=== PATIENT | female | born 1990 | race Caucasian/White ===

== ENCOUNTER 2017-06-09 21:42 | Emergency (ER) | payer SELFPAY ==
[2017-06-09 22:11] VITALS: BP 128/74; PULSE 96; TEMP 98.5; BMI 30.2
--- NOTE | 2017-06-09 22:44 | PDOC ---
History of Present Illness - General History Source: Patient Exam Limitations: No Limitations - History of Present Illness Initial Comments: 06/09/17 23:01 The patient is a 26-year-old female with no significant past medical history, and presents to the emergency department with right breast pain and redness for 3 days. She reports the pain started before the redness. She states she had 2 ultrasounds done and a BI-RAD 5 that was suggestive of breast malignancy. She also had a breast biopsy at [facility] which revealed an infection. She saw Dr. Amy Riley and took the prescribed amoxicillin and prednisone for several weeks. She denies any acute trauma. The patient denies chest pain, shortness of breath, headache and dizziness. The patient denies fever, chills, nausea, vomit, diarrhea and constipation. The patient denies dysuria, frequency, urgency and hematuria. 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 Past Surgical History: None reported Social History: No toxic habits reported <Minerva Arrington - Last Filed: 06/09/17 23:04> <Sandra Sandhu - Last Filed: 06/10/17 00:51> - General Chief Complaint: Pain Stated Complaint: BREAST PAIN Time Seen by Provider: 06/09/17 22:27 Past History <Minerva Arrington - Last Filed: 06/09/17 23:04> - Past Medical History Asthma: No Cancer: No Cardiac Disorders: No Diabetes: No HTN: No Seizures: No Thyroid Disease: No Other medical history: Bray's Palsy - Suicide/Smoking/Psychosocial Hx Smoking History: Never smoked Have you smoked in the past 12 months: No Information on smoking cessation initiated: No Hx Alcohol Use: No Drug/Substance Use Hx: No Substance Use Type: None Hx Substance Use Treatment: No <Sandra Sandhu - Last Filed: 06/10/17 00:51> - Past Medical History Allergies/Adverse Reactions: Allergies Allergy/AdvReac Type Severity Reaction Status Date / Time No Known Allergies Allergy Verified 06/09/17 22:09 Home Medications: Ambulatory Orders Cephalexin Monohydrate [Keflex -] 250 mg PO Q6H #28 capsule 06/10/17 Review of Systems - Review of Systems Able to Perform ROS?: Yes Comments:: 06/09/17 23:02 GENERAL/CONSTITUTIONAL: No fever or chills. No weakness. HEAD, EYES, EARS, NOSE AND THROAT: No change in vision. No ear pain or discharge. No sore throat. CARDIOVASCULAR: No chest pain or shortness of breath. RESPIRATORY: No cough, wheezing, or hemoptysis. GASTROINTESTINAL: No nausea, vomiting, diarrhea or constipation. GENITOURINARY: No dysuria, frequency, or change in urination. MUSCULOSKELETAL: (+) Right breast pain. No joint swelling or pain. No neck or back pain. SKIN: (+) Right breast redness. No rash NEUROLOGIC: No headache, vertigo, loss of consciousness, or change in strength/ sensation. ENDOCRINE: No increased thirst. No abnormal weight change. HEMATOLOGIC/LYMPHATIC: No anemia, easy bleeding, or history of blood clots. ALLERGIC/IMMUNOLOGIC: No hives or skin allergy. <Arrington,Minerva - Last Filed: 06/09/17 23:04> *Physical Exam - Vital Signs Last Vital Signs Temp Pulse Resp BP Pulse Ox 98.5 F 96 H 20 128/74 99 06/09/17 22:09 06/09/17 22:09 06/09/17 22:09 06/09/17 22:09 06/09/17 22:09 - Physical Exam Comments: 06/09/17 23:02 GENERAL: Awake, alert, and fully oriented, in no acute distress. Afebrile. HEAD: No signs of trauma EYES: PERRLA, EOMI, sclera anicteric, conjunctiva clear ENT: Auricles normal inspection, hearing grossly normal, nares patent, oropharynx clear without exudates. Moist mucosa NECK: Normal ROM, supple, no lymphadenopathy, JVD, or masses LUNGS: Breath sounds equal, clear to auscultation bilaterally. No wheezes, and no crackles HEART: Regular rate and rhythm, normal S1 and S2, no murmurs, rubs or gallops ABDOMEN: Soft, nontender, normoactive bowel sounds. No guarding, no rebound. No masses EXTREMITIES: Normal range of motion, no edema. No clubbing or cyanosis. No cords, erythema, or tenderness NEUROLOGICAL: Cranial nerves II through XII grossly intact. Normal speech, normal gait SKIN: (+) Right breast erythema at the lateral two quadrants. (+) Right breast RUQ small 1 cm cystic area with surrounding redness vs inflammation. Warm, Dry, normal turgor, no rashes noted. <Minerva Arrington - Last Filed: 06/09/17 23:04> - Vital Signs Last Vital Signs Temp Pulse Resp BP Pulse Ox 98.5 F 96 H 20 128/74 99 06/09/17 22:09 06/09/17 22:09 06/09/17 22:09 06/09/17 22:09 06/09/17 22:09 <Sandra Sandhu - Last Filed: 06/10/17 00:51> ED Treatment Course - LABORATORY CBC & Chemistry Diagram: 06/09/17 22:50 06/09/17 22:50 <Minerva Arrington - Last Filed: 06/09/17 23:04> - LABORATORY CBC & Chemistry Diagram: 06/09/17 22:50 06/09/17 22:50 <Sandra Sandhu - Last Filed: 06/10/17 00:51> Medical Decision Making - Medical Decision Making 06/10/17 00:27 Patient Name: ANTONIO RAMIRES THIS IS A PRELIMINARY REPORT FROM [facility] DATE OF SERVICE: 2017-06-09 23:42:32 IMAGES: 22 EXAM: US RIGHT BREAST HISTORY: Right lateral breast swelling COMPARISON: None. FINDINGS: Soft tissue scar at the 10 o'clock position of the right breast with adjacent heterogeneous tissue and subcutaneous edema. However, no discrete soft tissue mass or abnormal fluid collection is seen to suggest an abscess Dilated ducts at the 10 o'clock position of the right breast THIS DOCUMENT HAS BEEN ELECTRONICALLY SIGNED 06/10/17 00:50 Pt will be treated for cellulitis; she must follow with her breast specialist. <Sandra Sandhu - Last Filed: 06/10/17 00:51> *DC/Admit/Observation/Transfer - Attestations Scribe Attestion: 06/09/17 23:02 Documentation prepared by Minerva Arrington, acting as medical translator for Sandra Sandhu MD. <Minerva Arrington - Last Filed: 06/09/17 23:04> - Discharge Dispostion Admit: No <Sandra Sandhu - Last Filed: 06/10/17 00:51> Diagnosis at time of Disposition: Breast pain in female, Cellulitis - Discharge Dispostion Disposition: HOME Condition at time of disposition: Stable - Prescriptions Prescriptions: Cephalexin Monohydrate [Keflex -] 250 mg PO Q6H #28 capsule - Patient Instructions Printed Discharge Instructions: DI for Breast Pain (Mastalgia), DI for Mastitis Print Language: LATVIAN
[2017-06-09] MEDS ORDERED: CEFAZOLIN 1 GM in DEXTROSE 5%-WATER - 50 ML IVPB ONE (22:46)
[2017-06-09 23:01] LABS: BASOPHIL 0.5 % (0-2.0); EOSINOPHIL 2.3 % (0-4.5); MCH 30.3 pg (25.7-33.7); MCHC 33.6 g/dl (32.0-36.0); MEAN CELL VOLUME 90.3 fl (80-96); MEAN PLT VOLUME 11.1 fl (7.5-11.1); NEUTROPHILS 68.1 % (42.8-82.8); PLATELET COUNT 196 K/MM3 (134-434); RDW 13.1 % (11.6-15.6); WHITE BLOOD COUNT 10.5 K/mm3 (4.0-10.0)
[2017-06-09] MEDS ORDERED: CEFAZOLIN (PRE-DOCKED) 50 ML IVPB ONE (23:12)
[2017-06-09 23:23] LABS: ALBUMIN 3.6 g/dl (3.4-5.0); ALK PHOS 79 U/L (45-117); ANION GAP 5 (8-16); BILIRUBIN,TOTAL 0.2 mg/dL (0.2-1.0); CALCIUM 8.8 mg/dL (8.5-10.1); CO2 27 mmol/L (21-32); CREATININE 0.6 mg/dL (0.55-1.02); GLUCOSE,RANDOM 97 mg/dL (74-106); SGOT/AST 12 U/L (15-37); SGPT/ALT 21 U/L (12-78); TOT PROT 7.2 g/dl (6.4-8.2)
== END 2017-06-10 00:57 | disposition home or self-care (01) ==
LOC: JER 21:42
DX: N61.0 Mastitis without abscess (principal); N64.4 Mastodynia
CPT/HCPCS: 36415; 76642-TC-RT; 80053; 85025; 85651; 99282-25

== ENCOUNTER 2017-07-31 21:39 | Observation (INO) | payer OTHER ==
--- NOTE | 2017-07-31 22:13 | PDOC ---
Rapid Medical Evaluation Chief Complaint: Abscess Boil Time Seen by Provider: 07/31/17 22:11 Medical Evaluation: Allergies Allergy/AdvReac Type Severity Reaction Status Date / Time No Known Allergies Allergy Verified 06/09/17 22:09 07/31/17 22:11 I have performed a brief in-person evaluation of this patient. The patient presents with a chief complaint of: Right Breast Pain with Swelling Pertinent physical exam findings: Right Breast Lump, hard, swollen, severe tenderness, erythema to the 10-12 o'clock position. I have ordered the following: CT Chest with IV contrast r/o neoplasm or deep abscess that needs surgical treatment. Labs. The patient will proceed to the ED for further evaluation.
[2017-07-31 22:16] VITALS: BMI 29.2
[2017-07-31 22:43] LABS: BASOPHIL 0.7 % (0-2.0); EOSINOPHIL 1.9 % (0-4.5); MCH 30.4 pg (25.7-33.7); MEAN CELL VOLUME 89.5 fl (80-96); MEAN PLT VOLUME 10.3 fl (7.5-11.1); NEUTROPHILS 59.1 % (42.8-82.8); PLATELET COUNT 238 K/MM3 (134-434); RDW 13.1 % (11.6-15.6); WHITE BLOOD COUNT 10.8 K/mm3 (4.0-10.0)
--- NOTE | 2017-07-31 23:09 | PDOC ---
History of Present Illness - General History Source: Patient Exam Limitations: No Limitations - History of Present Illness Initial Comments: 07/31/17 23:41 The patient is a 27 year old female presenting with her family, with no significant past medical history, who presents to the emergency department with right breast pain, swelling and erythema. She states that she recently noticed the symptoms. She reports that her pain ranges from mild to moderate, without radiation. She states that palpating the area exacerbates the pain. She reports that she had a similar episode that occurred last year, which also involved her right breast. She had imaging and a biopsy that were negative for any significant findings. She was placed on antibiotics and then issue resolved. The patient denies chest pain, shortness of breath, headache and dizziness. Denies fever, chills, nausea, vomit, diarrhea and constipation. Denies dysuria, frequency, urgency and hematuria. Allergies: None Past surgical history: None reported Social history: No alcohol, tobacco or drug use reported <Hakeem Grimaldo - Last Filed: 07/31/17 23:38> <Isaiah Adkins - Last Filed: 08/01/17 01:01> - General Chief Complaint: Abscess Boil Stated Complaint: BREAST PAIN Time Seen by Provider: 07/31/17 22:11 Past History <Hakeem Grimaldo - Last Filed: 07/31/17 23:38> - Past Medical History Asthma: No Cancer: No Cardiac Disorders: No COPD: No Diabetes: No HTN: No Seizures: No Thyroid Disease: No (Pt denies) - Suicide/Smoking/Psychosocial Hx Smoking History: Never smoked Have you smoked in the past 12 months: No Information on smoking cessation initiated: No Hx Alcohol Use: No Drug/Substance Use Hx: No Substance Use Type: None Hx Substance Use Treatment: No <Isaiah Adkins - Last Filed: 08/01/17 01:01> - Past Medical History Allergies/Adverse Reactions: Allergies Allergy/AdvReac Type Severity Reaction Status Date / Time No Known Allergies Allergy Verified 07/31/17 22:12 Home Medications: Ambulatory Orders NK [No Known Home Medication] 08/01/17 Review of Systems - Review of Systems Able to Perform ROS?: Yes Comments:: 07/31/17 23:39 CONSTITUTIONAL: No fever, no chills, no fatigue EYES: No visual changes ENT: No ear pain, no sore throat CARDIOVASCULAR: No chest pain, no palpitations RESPIRATORY: No cough, no SOB GI: No abdominal pain, no nausea, no vomiting, no constipation, no diarrhea GENITOURINARY: No dysuria, no frequency, no hematuria MUSKULOSKELETAL: No backpain, no joint pain, no myalgias SKIN: (+) Right breast pain, swelling and erythema. NEURO: No headache <Hakeem Grimaldo - Last Filed: 07/31/17 23:38> *Physical Exam - Vital Signs Last Vital Signs Temp Pulse Resp BP Pulse Ox 97.8 F 72 20 130/62 100 07/31/17 22:14 07/31/17 22:14 07/31/17 22:14 07/31/17 22:14 07/31/17 22:14 - Physical Exam Comments: 07/31/17 23:39 CONSTITUTIONAL: Well-appearing; well-nourished; in no apparent distress HEAD: Normocephalic; atraumatic EYES: PERRL; EOM intact ENMT: External appears normal; normal oropharynx NECK: Supple; non-tender; no cervical lymphadenopathy CARD: Normal S1, S2; no murmurs, rubs, or gallops RESP: Normal chest excursion with respiration; breath sounds clear and equal bilaterally; no wheezes, rhonchi, or rales ABD: Soft, non-distended; non-tender; no palpable organomegaly, no palpable hernias EXT: Normal ROM in all four extremities; non-tender to palpation; distal pulses intact SKIN: (+) 4 by 2 cm area of induration in the right upper quadrant of right breast with overlying erythema and tenderness to palpation. NEURO: No focal neurological deficiencies. <Hakeem Grimaldo - Last Filed: 07/31/17 23:38> - Vital Signs Last Vital Signs Temp Pulse Resp BP Pulse Ox 97.8 F 72 20 130/62 100 07/31/17 22:14 07/31/17 22:14 07/31/17 22:14 07/31/17 22:14 07/31/17 22:14 <Isaiah Adkins - Last Filed: 08/01/17 01:01> ED Treatment Course - LABORATORY CBC & Chemistry Diagram: 07/31/17 22:30 07/31/17 22:30 - ADDITIONAL ORDERS Additional order review: Laboratory Results 07/31/17 07/31/17 23:10 22:30 PT with INR 13.70 H INR 1.21 H Urine Color Colorless Urine Appearance Clear Urine pH 6.0 Ur Specific [place] 1.006 Urine Protein Negative Urine Glucose (UA) Negative Urine Ketones Negative Urine Blood Negative Urine Nitrite Negative Urine Bilirubin Negative Urine Urobilinogen Negative Urine HCG, Qual Negative 07/31/17 22:30 RBC 4.11 MCV 89.5 MCHC 34.0 RDW 13.1 MPV 10.3 Neutrophils % 59.1 Lymphocytes % 29.7 D Monocytes % 8.6 Eosinophils % 1.9 Basophils % 0.7 - Medications Given in the ED: ED Medications Discontinued Medications Generic Name Dose Route Start Last Admin Trade Name Freq PRN Reason Stop Dose Admin Oxycodone/Acetaminophen 1 combo 07/31/17 23:18 07/31/17 23:23 Percocet 5/325 - PO 07/31/17 23:19 1 combo ONCE ONE Administration <Hakeem Grimaldo - Last Filed: 07/31/17 23:38> - LABORATORY CBC & Chemistry Diagram: 07/31/17 22:30 07/31/17 22:30 - ADDITIONAL ORDERS Additional order review: 07/31/17 22:30 RBC 4.11 MCV 89.5 MCHC 34.0 RDW 13.1 MPV 10.3 Neutrophils % 59.1 Lymphocytes % 29.7 D Monocytes % 8.6 Eosinophils % 1.9 Basophils % 0.7 <Isaiah Adkins - Last Filed: 08/01/17 01:01> Medical Decision Making - Medical Decision Making 08/01/17 01:00 Patient is a 27-year-old female who presents to the ER with an approximate 3.5 cm right breast abscess. Patient is received IV Unasyn and Percocet for pain. Will consult breast surgery for IND. Will place and observation. <Isaiah Adkins - Last Filed: 08/01/17 01:01> *DC/Admit/Observation/Transfer - Attestations Scribe Attestion: 07/31/17 23:39 Documentation prepared by Hakeem Grimaldo, acting as vice president medical affairs for Isaiah Adkins MD <Hakeem Grimaldo - Last Filed: 07/31/17 23:38> - Discharge Dispostion Admit: Yes - Attestations Physician Attestion: 08/01/17 00:59 The documentation was prepared by the scribe under my direct supervision. I have reviewed the documentation which correctly represents the findings, medical decision-making and critical action taken by me. <Isaiah Adkins - Last Filed: 08/01/17 01:01> Diagnosis at time of Disposition: Breast abscess - Discharge Dispostion Condition at time of disposition: Fair
[2017-07-31 23:27] LABS: URINE APPEARANCE CLEAR; URINE BILIRUBIN NEGATIVE (NEGATIVE); URINE BLOOD NEGATIVE (NEGATIVE); URINE COLOR COLORLESS; URINE GLUCOSE (UA) NEGATIVE (NEGATIVE); URINE KETONE NEGATIVE (NEGATIVE); URINE NITRITE NEGATIVE (NEGATIVE); URINE PROTEIN NEGATIVE (NEGATIVE); URINE UROBILINOGEN NEGATIVE mg/dL (0.2-1.0)
[2017-07-31] MEDS ORDERED: AMPICILLIN NA/SULBACTAM NA 3 GM in SODIUM CHLORIDE 100 ML IVPB ONE (23:29)
[2017-07-31 23:33] LABS: INR 1.21 (0.82-1.09); PROTHROMBIN TIME (PATIENT) 13.7 SEC (9.98-11.88)
[2017-07-31 23:38] LABS: ALBUMIN 3.8 g/dl (3.4-5.0); ANION GAP 9 (8-16); CALCIUM 9.1 mg/dL (8.5-10.1); CO2 27 mmol/L (21-32); GLUCOSE,RANDOM 90 mg/dL (74-106)
[2017-07-31 23:42] LABS: ALK PHOS 87 U/L (45-117); BILIRUBIN,TOTAL 0.2 mg/dL (0.2-1.0); CREATININE 0.5 mg/dL (0.55-1.02); SGOT/AST 18 U/L (15-37); SGPT/ALT 29 U/L (12-78); TOT PROT 7.4 g/dl (6.4-8.2)
--- NOTE | 2017-08-01 01:04 | HP ---
CHIEF COMPLAINT: PCP: HISTORY OF PRESENT ILLNESS: ER course was notable for: (1) (2) (3) Recent Travel: PAST MEDICAL HISTORY: PAST SURGICAL HISTORY: Social History: Smoking: Alcohol: Drugs: Family History: Allergies No Known Allergies Allergy (Verified 07/31/17 22:12) HOME MEDICATIONS: Home Medications Medication Instructions Recorded NK [No Known Home Medication] 08/01/17 REVIEW OF SYSTEMS CONSTITUTIONAL: Absent: fever, chills, diaphoresis, generalized weakness, malaise, loss of appetite, weight change HEENT: Absent: rhinorrhea, nasal congestion, throat pain, throat swelling, difficulty swallowing, mouth swelling, ear pain, eye pain, visual changes CARDIOVASCULAR: Absent: chest pain, syncope, palpitations, irregular heart rate, lightheadedness , peripheral edema RESPIRATORY: Absent: cough, shortness of breath, dyspnea with exertion, orthopnea, wheezing, stridor, hemoptysis GASTROINTESTINAL: Absent: abdominal pain, abdominal distension, nausea, vomiting, diarrhea, constipation, melena, hematochezia GENITOURINARY: Absent: dysuria, frequency, urgency, hesitancy, hematuria, flank pain, genital pain MUSCULOSKELETAL: Absent: myalgia, arthralgia, joint swelling, back pain, neck pain SKIN: Absent: rash, itching, pallor HEMATOLOGIC/IMMUNOLOGIC: Absent: easy bleeding, easy bruising, lymphadenopathy, frequent infections ENDOCRINE: Absent: unexplained weight gain, unexplained weight loss, heat intolerance, cold intolerance NEUROLOGIC: Absent: headache, focal weakness or paresthesias, dizziness, unsteady gait, seizure, mental status changes, bladder or bowel incontinence PSYCHIATRIC: Absent: anxiety, depression, suicidal or homicidal ideation, hallucinations. PHYSICAL EXAMINATION Vital Signs - 24 hr 07/31/17 22:14 Temperature 97.8 F Pulse Rate 72 Respiratory 20 Rate Blood Pressure 130/62 O2 Sat by Pulse 100 Oximetry (%) GENERAL: Awake, alert, and fully oriented, in no acute distress. HEAD: Normal with no signs of trauma. EYES: Pupils equal, round and reactive to light, extraocular movements intact, sclera anicteric, conjunctiva clear. No lid lag. EARS, NOSE, THROAT: Ears normal, nares patent, oropharynx clear without exudates. Moist mucous membranes. NECK: Normal range of motion, supple without lymphadenopathy, JVD, or masses. LUNGS: Breath sounds equal, clear to auscultation bilaterally. No wheezes, and no crackles. No accessory muscle use. HEART: Regular rate and rhythm, normal S1 and S2 without murmur, rub or gallop. ABDOMEN: Soft, nontender, not distended, normoactive bowel sounds, no guarding, no rebound, no masses. No hepatomegaly or splenomegaly. MUSCULOSKELETAL: Normal range of motion at all joints. No bony deformities or tenderness. No CVA tenderness. UPPER EXTREMITIES: 2+ pulses, warm, well-perfused. No cyanosis. No clubbing. No peripheral edema. LOWER EXTREMITIES: 2+ pulses, warm, well-perfused. No calf tenderness. No peripheral edema. NEUROLOGICAL: Cranial nerves II-XII intact. Normal speech. Normal gait. PSYCHIATRIC: Cooperative. Good eye contact. Appropriate mood and affect. SKIN: Warm, dry, normal turgor, no rashes or lesions noted, normal capillary refill. Laboratory Results - last 24 hr 07/31/17 07/31/17 07/31/17 22:30 22:30 22:30 WBC 10.8 H RBC 4.11 Hgb 12.5 Hct 36.7 MCV 89.5 MCH 30.4 MCHC 34.0 RDW 13.1 Plt Count 238 D MPV 10.3 Neutrophils % 59.1 Lymphocytes % 29.7 D Monocytes % 8.6 Eosinophils % 1.9 Basophils % 0.7 PT with INR 13.70 H INR 1.21 H Sodium 139 Potassium 3.7 Chloride 103 Carbon Dioxide 27 Anion Gap 9 BUN 14 Creatinine 0.5 L Creat Clearance w eGFR > 60 Random Glucose 90 Calcium 9.1 Total Bilirubin 0.2 AST 18 D ALT 29 D Alkaline Phosphatase 87 Total Protein 7.4 Albumin 3.8 Urine Color Urine Appearance Urine pH Ur Specific [place] Urine Protein Urine Glucose (UA) Urine Ketones Urine Blood Urine Nitrite Urine Bilirubin Urine Urobilinogen Urine HCG, Qual 07/31/17 23:10 WBC RBC Hgb Hct MCV MCH MCHC RDW Plt Count MPV Neutrophils % Lymphocytes % Monocytes % Eosinophils % Basophils % PT with INR INR Sodium Potassium Chloride Carbon Dioxide Anion Gap BUN Creatinine Creat Clearance w eGFR Random Glucose Calcium Total Bilirubin AST ALT Alkaline Phosphatase Total Protein Albumin Urine Color Colorless Urine Appearance Clear Urine pH 6.0 Ur Specific [place] 1.006 Urine Protein Negative Urine Glucose (UA) Negative Urine Ketones Negative Urine Blood Negative Urine Nitrite Negative Urine Bilirubin Negative Urine Urobilinogen Negative Urine HCG, Qual Negative ASSESSMENT/PLAN: Problem List - Problem (1) Breast abscess Code(s): N61.1 - ABSCESS OF THE BREAST AND NIPPLE (2) Breast pain in female Code(s): N64.4 - MASTODYNIA Visit type - Emergency Visit Emergency Visit: Yes ED Registration Date: 07/31/17 Care time: The patient presented to the Emergency Department on the above date and was hospitalized for further evaluation of their emergent condition. - New Patient This patient is new to me today: Yes Date on this admission: 08/01/17 - Critical Care Critical Care patient: No
--- NOTE | 2017-08-01 01:18 | PN ---
Teaching Attending Note Name of Resident: Casper López ATTENDING PHYSICIAN STATEMENT I saw and evaluated the patient. I reviewed the resident's note and discussed the case with the resident. I agree with the resident's findings and plan as documented. SUBJECTIVE: 27 year old female with prior history of Right breast abscess presents today c/ o R breast pain , erythema and swelling x 2 days duration. Reports chills. OBJECTIVE: Vital Signs Temperature 97.8 F 07/31/17 22:14 Pulse Rate 72 07/31/17 22:14 Respiratory Rate 20 07/31/17 22:14 Blood Pressure 130/62 07/31/17 22:14 O2 Sat by Pulse Oximetry (%) 100 07/31/17 22:14 HEART: RRR, normal S1 and S2 without murmur BREAST: R breast erythema and half-dollar sized mass noted at 9-10 o'clock position painful to palpation. No erythema extending to areola or tracking to lymphadenopathy ABDOMEN: Soft, nontender, nondistended, normoactive bowel sounds, no guarding. No hepatomegaly. MUSCULOSKELETAL: No CVA tenderness CBC, BMP 07/31/17 22:30 07/31/17 22:30 Home Medication List Medication Instructions Recorded Confirmed Type NK [No Known Home Medication] 08/01/17 08/01/17 History ASSESSMENT AND PLAN: Right breast abscess, recurrent - surgical consult for I&D - IV antibiotics -ID consult - pain management as orderd
[2017-08-01] MEDS ORDERED: ACETAMINOPHEN 325 MG TABLET (FP) PO PRN (01:32)
--- NOTE | 2017-08-01 01:33 | HP ---
CHIEF COMPLAINT: Fevers/chills, breast mass PCP: Dr. Sandhu HISTORY OF PRESENT ILLNESS: 27yo F with no significant history who presents to the ED with family for chills, and painful R breast erythema and mass. Pt states she had this previously and had a biopsy done which showed an infection. Per medical records she was given antibiotics for 1-2wk supply. Pt states her chills started about a week ago, however she noticed increased pain and than an area of erythema on her breast about 2 days ago. Currently pt still has some chills and has pain with movement of her R arm due to the breast mass. Pt denies any constitutional symptoms, CP/discomfort, palpitations, SOB, abdominal pain, dysuria/polyuria, spontaneous or other drainage from nipple, and dysphagia. ER course was notable for: (1) R Breast US - 3.6 x 3.0 x 2.9cm complex fluid collection demonstrating scattered peripheral vascularity, most likely representing an abscess at the tendon 10 to 11:00 position approximately 2cm from the nipple (2) Dr. Andrade consulted (3) Unasyn 3gm dose x1 administered (4) WBC 10.7, Afebrile (5) Blood culture x2 drawn Recent Travel: Denies PAST MEDICAL HISTORY: Prior breast abscess PAST SURGICAL HISTORY: Breast biopsy Social History: Smoking: None Alcohol: None Drugs: None Family History: No family history of breast cancer Allergies No Known Allergies Allergy (Verified 07/31/17 22:12) HOME MEDICATIONS: Home Medications Medication Instructions Recorded NK [No Known Home Medication] 08/01/17 REVIEW OF SYSTEMS CONSTITUTIONAL: Present: Chills Absent: diaphoresis, generalized weakness, malaise, loss of appetite, weight change HEENT: Absent: rhinorrhea, nasal congestion, throat pain, throat swelling, difficulty swallowing, mouth swelling, ear pain, eye pain, visual changes CARDIOVASCULAR: Absent: chest pain, syncope, palpitations, irregular heart rate, lightheadedness , peripheral edema RESPIRATORY: Absent: cough, shortness of breath, dyspnea with exertion, orthopnea, wheezing, stridor, hemoptysis GASTROINTESTINAL: Absent: abdominal pain, abdominal distension, nausea, vomiting, diarrhea, constipation, melena, hematochezia GENITOURINARY: Absent: dysuria, frequency, urgency, hesitancy, hematuria, flank pain, genital pain MUSCULOSKELETAL: Absent: myalgia, arthralgia, joint swelling, back pain, neck pain SKIN: Present: R breast erythema Absent: rash, itching, pallor HEMATOLOGIC/IMMUNOLOGIC: Absent: easy bleeding, easy bruising, lymphadenopathy, frequent infections ENDOCRINE: Absent: unexplained weight gain, unexplained weight loss, heat intolerance, cold intolerance NEUROLOGIC: Absent: headache, focal weakness or paresthesias, dizziness, unsteady gait, seizure, mental status changes, bladder or bowel incontinence PSYCHIATRIC: Absent: anxiety, depression, suicidal or homicidal ideation, hallucinations. PHYSICAL EXAMINATION Vital Signs - 24 hr 07/31/17 22:14 Temperature 97.8 F Pulse Rate 72 Respiratory 20 Rate Blood Pressure 130/62 O2 Sat by Pulse 100 Oximetry (%) GENERAL: Sitting in chair, Awake, Alert, in slight pain HEENT: Moist mucosa, EOMI, OLU, no scleral icterus or other injections noted. LUNGS: CTA bilaterally. No wheezes, rales, rhonchi. HEART: RRR, normal S1 and S2 without murmur BREAST: R breast erythema and half-dollar sized mass noted at 9-10 o'clock position painful to palpation. No erythema extending to areola or tracking to lymphadenopathy ABDOMEN: Soft, nontender, nondistended, normoactive bowel sounds, no guarding. No hepatomegaly. MUSCULOSKELETAL: No CVA tenderness. R shoulder ROM limited due to pain EXTREMITIES: 2+ DP pulses, No edema noted NEUROLOGICAL: Non-focal. Alert and oriented x3. Strength 5/5 throughout with R arm PSYCHIATRIC: Cooperative. Good eye contact. Appropriate mood and affect. SKIN: Warm, See breast exam. No other rashes seen. Laboratory Results - last 24 hr 07/31/17 07/31/17 07/31/17 22:30 22:30 22:30 WBC 10.8 H RBC .11 Hgb 12.5 Hct 36.7 MCV 89.5 MCH 30.4 MCHC 34.0 RDW 13.1 Plt Count 238 D MPV 10.3 Neutrophils % 59.1 Lymphocytes % 29.7 D Monocytes % 8.6 Eosinophils % 1.9 Basophils % 0.7 PT with INR 13.70 H INR 1.21 H Sodium 139 Potassium 3.7 Chloride 103 Carbon Dioxide 27 Anion Gap 9 BUN 14 Creatinine 0.5 L Creat Clearance w eGFR > 60 Random Glucose 90 Calcium 9.1 Total Bilirubin 0.2 AST 18 D ALT 29 D Alkaline Phosphatase 87 Total Protein 7.4 Albumin 3.8 Urine Color Urine Appearance Urine pH Ur Specific [place] Urine Protein Urine Glucose (UA) Urine Ketones Urine Blood Urine Nitrite Urine Bilirubin Urine Urobilinogen Urine HCG, Qual 07/31/17 23:10 WBC RBC Hgb Hct MCV MCH MCHC RDW Plt Count MPV Neutrophils % Lymphocytes % Monocytes % Eosinophils % Basophils % PT with INR INR Sodium Potassium Chloride Carbon Dioxide Anion Gap BUN Creatinine Creat Clearance w eGFR Random Glucose Calcium Total Bilirubin AST ALT Alkaline Phosphatase Total Protein Albumin Urine Color Colorless Urine Appearance Clear Urine pH 6.0 Ur Specific [place] 1.006 Urine Protein Negative Urine Glucose (UA) Negative Urine Ketones Negative Urine Blood Negative Urine Nitrite Negative Urine Bilirubin Negative Urine Urobilinogen Negative Urine HCG, Qual Negative ASSESSMENT/PLAN: 27yo F with no history seen for breast mass and erythema found to have skin abscess of the R breast via US 1) R breast abscess --Surgery consulted in ED --Continue Unasyn 1.5gm q6h --Tylenol 650mg PO PRN for fevers --NPO for now --Type and screen FEN: Fluids: None needed currently Electrolyte abnormality: None Nutrition: NPO for now Dispo: Place into observation Case discussed with Dr. Luis A López, DO - Internal Medicine PGY-1 Visit type - Emergency Visit Emergency Visit: Yes Care time: The patient presented to the Emergency Department on the above date and was hospitalized for further evaluation of their emergent condition. - New Patient This patient is new to me today: Yes Date on this admission: 08/01/17 - Critical Care Critical Care patient: No
--- NOTE | 2017-08-01 01:44 | MSN ---
Admitting History and Physical - Admission Chief Complaint: Right breast abscess History of Present Illness: Kassandra Holbrook is a 27 year old female, vietnamese-speaking, with no significant pmhx who presents with right breast abscess. Patient states that she was having chills, headache and right breast pain for 1 week. She noted a mass on the right upper part of her right breast yesterday that is painful. Patient states that she had a similar mass last year for which she had a negative biopsy. She was discharged home on antibiotics. Patient denies dysuria, hematuria, chest pain, SOB, abdominal pain, sore throat or dysphagia. ER course was notable for: 1. WBC count was 10.8 2. US of the right breast showed a 3.6 X 3.0 X 2.9 cm fluid collection, likely representing abscess at 10 to 11 position approximately 2 cm from the nipple 3. Dr. Andrade was consulted History Source: Patient Limitations to Obtaining History: Language Barrier - Past Surgical History Past Surgical History: Yes: None - Smoking History Smoking history: Never smoked Have you smoked in the past 12 months: No - Alcohol/Substance Use Hx Alcohol Use: No Home Medications - Allergies Allergies/Adverse Reactions: Allergies Allergy/AdvReac Type Severity Reaction Status Date / Time No Known Allergies Allergy Verified 07/31/17 22:12 - Home Medications Home Medications: Ambulatory Orders NK [No Known Home Medication] 08/01/17 Review of Systems - Review of Systems Constitutional: reports: Chills Eyes: reports: No Symptoms HENT: reports: No Symptoms Neck: reports: No Symptoms Cardiovascular: reports: No Symptoms Respiratory: reports: No Symptoms Gastrointestinal: reports: No Symptoms Genitourinary: reports: No Symptoms Breasts: reports: Lumps, Pain Musculoskeletal: reports: No Symptoms Neurological: reports: No Symptoms Endocrine: reports: No Symptoms Physical Examination Vital Signs: Vital Signs Temperature 97.8 F 07/31/17 22:14 Pulse Rate 72 07/31/17 22:14 Respiratory Rate 20 07/31/17 22:14 Blood Pressure 130/62 07/31/17 22:14 O2 Sat by Pulse Oximetry (%) 100 07/31/17 22:14 Constitutional: Yes: Well Nourished, No Distress, Calm Eyes: Yes: Conjunctiva Clear, EOM Intact HENT: Yes: Atraumatic, Normocephalic Neck: Yes: Supple, Trachea Midline Cardiovascular: Yes: Regular Rate and Rhythm Respiratory: Yes: Regular, CTA Bilaterally Gastrointestinal: Yes: Normal Bowel Sounds, Soft Breast(s): Yes: Right, Mass (erythematous mass noted on the right breast that is approximately 3-4cm in diameter, indurated, warm to touch, tenderness to palpation) Musculoskeletal: Yes: WNL Extremities: Yes: WNL Neurological: Yes: Alert, Oriented ...Motor Strength: WNL Labs: CBC, BMP 07/31/17 22:30 07/31/17 22:30 Assessment/Plan Kassandra Holbrook is a 27 year old female with no significant pmhx who presented with right breast abscess. 1. Right breast pain secondary to abscess - US of the right breast showed a 3.6 X 3.0 X 2.9 cm fluid collection, likely representing abscess at 10 to 11 position approximately 2 cm from the nipple - Zosyn IVPB Q6H - Acetaminophen 650mg Q4H PRN - Blood culturre - Type and screen - PT/INR - Blood culture - Consult Dr. Andrade to see if surgery is necessary
[2017-08-01 06:49] LABS: INR 1.19 (0.82-1.09); PROTHROMBIN TIME (PATIENT) 13.4 SEC (9.98-11.88)
[2017-08-01] MEDS ORDERED: AMPICILLIN NA/SULBACTAM NA 1.5 GM in SODIUM CHLORIDE 100 ML IVPB SCH (07:00)
[2017-08-01 08:12] VITALS: BP 116/61; PULSE 79; TEMP 97.8
[2017-08-01] MEDS ORDERED: morphine CARPU-JECT 2 MG/1 ML DISP.SYRIN IVPUSH STA (11:08)
[2017-08-01] MEDS ORDERED: morphine CARPU-JECT 2 MG/1 ML DISP.SYRIN IVPUSH PRN (11:09)
--- NOTE | 2017-08-01 11:10 | PN ---
Physical Exam: SUBJECTIVE: Patient seen and examined OBJECTIVE: Vital Signs Period Temp Pulse Resp BP Sys/Benson Pulse Ox Last 24 Hr 97.6 F-97.8 F 62-79 16-20 103-130/54-72 100-100 GENERAL: The patient is awake, alert, and fully oriented, in no acute distress. HEAD: Normal with no signs of trauma. EYES: PERRL, extraocular movements intact, sclera anicteric, conjunctiva clear. No ptosis. ENT: Ears normal, nares patent, oropharynx clear without exudates, moist mucous membranes. NECK: Trachea midline, full range of motion, supple. LUNGS: Breath sounds equal, clear to auscultation bilaterally, no wheezes, no crackles, no accessory muscle use. right breast, area of erythema, indurated 10:00 position, exquisitely tender HEART: Regular rate and rhythm, S1, S2 without murmur, rub or gallop. ABDOMEN: Soft, nontender, nondistended, normoactive bowel sounds, no guarding, no rebound, no hepatosplenomegaly, no masses. EXTREMITIES: 2+ pulses, warm, well-perfused, no edema. NEUROLOGICAL: Cranial nerves II through XII grossly intact. Normal speech, gait not observed. PSYCH: Normal mood, normal affect. SKIN: Warm, dry, normal turgor, no rashes or lesions noted Laboratory Results - last 24 hr 07/31/17 07/31/17 07/31/17 22:30 22:30 22:30 WBC 10.8 H RBC 4.11 Hgb 12.5 Hct 36.7 MCV 89.5 MCH 30.4 MCHC 34.0 RDW 13.1 Plt Count 238 D MPV 10.3 Neutrophils % 59.1 Lymphocytes % 29.7 D Monocytes % 8.6 Eosinophils % 1.9 Basophils % 0.7 PT with INR 13.70 H INR 1.21 H Sodium 139 Potassium 3.7 Chloride 103 Carbon Dioxide 27 Anion Gap 9 BUN 14 Creatinine 0.5 L Creat Clearance w eGFR > 60 Random Glucose 90 Calcium 9.1 Total Bilirubin 0.2 AST 18 D ALT 29 D Alkaline Phosphatase 87 Total Protein 7.4 Albumin 3.8 Urine Color Urine Appearance Urine pH Ur Specific [place] Urine Protein Urine Glucose (UA) Urine Ketones Urine Blood Urine Nitrite Urine Bilirubin Urine Urobilinogen Urine HCG, Qual Blood Type Antibody Screen 07/31/17 08/01/17 08/01/17 23:10 06:04 06:04 WBC RBC Hgb Hct MCV MCH MCHC RDW Plt Count MPV Neutrophils % Lymphocytes % Monocytes % Eosinophils % Basophils % PT with INR 13.40 H INR 1.19 H Sodium Potassium Chloride Carbon Dioxide Anion Gap BUN Creatinine Creat Clearance w eGFR Random Glucose Calcium Total Bilirubin AST ALT Alkaline Phosphatase Total Protein Albumin Urine Color Colorless Urine Appearance Clear Urine pH 6.0 Ur Specific [place] 1.006 Urine Protein Negative Urine Glucose (UA) Negative Urine Ketones Negative Urine Blood Negative Urine Nitrite Negative Urine Bilirubin Negative Urine Urobilinogen Negative Urine HCG, Qual Negative Blood Type A POSITIVE Antibody Screen Negative Active Medications Generic Name Dose Route Start Last Admin Trade Name Freq PRN Reason Stop Dose Admin Acetaminophen 650 mg 08/01/17 01:32 Tylenol - PO Q4H PRN FEVER OR PAIN Ampicillin Sodium/Sulbactam 100 mls @ 200 mls/hr 08/01/17 07:00 08/01/17 06: 43 Sodium 1.5 gm/ Sodium Chloride IVPB 200 mls/hr Q6H-IV DICK Administration Morphine Sulfate 2 mg 08/01/17 11:08 Morphine Injection - IVPUSH 08/01/17 11:09 ONCE STA Morphine Sulfate 2 mg 08/01/17 11:09 Morphine Injection - IVPUSH Q4H PRN PAIN ASSESSMENT/PLAN: morphine for pain
[2017-08-01] MEDS ORDERED: morphine SULFATE 4 MG/ML VIAL ONE (11:18)
[2017-08-01 11:32] LABS: URINE LEUK ESTERASE Negative (NEGATIVE)
--- NOTE | 2017-08-01 13:28 | DS ---
Physical Exam: SUBJECTIVE: Patient seen and examined OBJECTIVE: Vital Signs Period Temp Pulse Resp BP Sys/Benson Pulse Ox Last 24 Hr 97.6 F-97.8 F 62-79 16-20 103-130/54-72 100-100 PHYSICAL EXAM GENERAL: The patient is awake, alert, and fully oriented, in no acute distress. HEAD: Normal with no signs of trauma. EYES: PERRL, extraocular movements intact, sclera anicteric, conjunctiva clear. ENT: Ears normal, nares patent, oropharynx clear without exudates, moist mucous membranes. NECK: Trachea midline, full range of motion, supple. LUNGS: Breath sounds equal, clear to auscultation bilaterally, no wheezes, no crackles, no accessory muscle use. HEART: Regular rate and rhythm, S1, S2 without murmur, rub or gallop. ABDOMEN: Soft, nontender, nondistended, normoactive bowel sounds, no guarding, no rebound, no hepatosplenomegaly, no masses. EXTREMITIES: 2+ pulses, warm, well-perfused, no edema. NEUROLOGICAL: Cranial nerves II through XII grossly intact. Normal speech, gait not observed. PSYCH: Normal mood, normal affect. SKIN: Warm, dry, normal turgor, no rashes or lesions noted. LABS Laboratory Results - last 24 hr 07/31/17 07/31/17 07/31/17 22:30 22:30 22:30 WBC 10.8 H RBC 4.11 Hgb 12.5 Hct 36.7 MCV 89.5 MCH 30.4 MCHC 34.0 RDW 13.1 Plt Count 238 D MPV 10.3 Neutrophils % 59.1 Lymphocytes % 29.7 D Monocytes % 8.6 Eosinophils % 1.9 Basophils % 0.7 PT with INR 13.70 H INR 1.21 H Sodium 139 Potassium 3.7 Chloride 103 Carbon Dioxide 27 Anion Gap 9 BUN 14 Creatinine 0.5 L Creat Clearance w eGFR > 60 Random Glucose 90 Calcium 9.1 Total Bilirubin 0.2 AST 18 D ALT 29 D Alkaline Phosphatase 87 Total Protein 7.4 Albumin 3.8 Urine Color Urine Appearance Urine pH Ur Specific [place] Urine Protein Urine Glucose (UA) Urine Ketones Urine Blood Urine Nitrite Urine Bilirubin Urine Urobilinogen Ur Leukocyte Esterase Urine HCG, Qual Blood Type Antibody Screen 07/31/17 08/01/17 08/01/17 23:10 06:04 06:04 WBC RBC Hgb Hct MCV MCH MCHC RDW Plt Count MPV Neutrophils % Lymphocytes % Monocytes % Eosinophils % Basophils % PT with INR 13.40 H INR 1.19 H Sodium Potassium Chloride Carbon Dioxide Anion Gap BUN Creatinine Creat Clearance w eGFR Random Glucose Calcium Total Bilirubin AST ALT Alkaline Phosphatase Total Protein Albumin Urine Color Colorless Urine Appearance Clear Urine pH 6.0 Ur Specific [place] 1.006 Urine Protein Negative Urine Glucose (UA) Negative Urine Ketones Negative Urine Blood Negative Urine Nitrite Negative Urine Bilirubin Negative Urine Urobilinogen Negative Ur Leukocyte Esterase Negative Urine HCG, Qual Negative Blood Type A POSITIVE Antibody Screen Negative HOSPITAL COURSE: Date of Admission:08/01/17 Date of Discharge: 08/01/17 Minutes to complete discharge: 35 Discharge Summary Reason For Visit: ABSCESS OF BREAST Current Active Problems Breast abscess (Acute) Condition: Stable - Instructions Diet, Activity, Other Instructions: You are encouraged to make an appointment with your breast surgeon, Dr. Chelo Bautista for follow up care. You may Motrin or Tylenol for inflammation and pain. Do not exceed 4,000mg of tylenol in a 24-hour period. Return to the emergency department for any new or worsening symptoms. Referrals: Chelo Bautista MD [Non Staff, Medical] - 1 Week Disposition: HOME - Home Medications Comprehensive Discharge Medication List: Ambulatory Orders NK [No Known Home Medication] 08/01/17 This patient is new to me today: Yes Date on this admission: 08/01/17 Emergency Visit: Yes ED Registration Date: 08/01/17 Care time: The patient presented to the Emergency Department on the above date and was hospitalized for further evaluation of their emergent condition. Critical Care patient: No - Discharge Referral Referred to [facility] Med P.C.: No
--- NOTE | 2017-08-01 14:06 | CONSULT ---
- Consultation REQUESTING PROVIDER: [place] ENGINEER AND GEOLOGIST CONSULT REQUEST: We have been asked to surgically evaluate this patient for ( specify). PCP:Lakshmi Rolon HISTORY OF PRESENT ILLNESS: # days of right breast pain w/an associated mass previously present and bxed. PMHx: none PSHx: USG right breast bx. by Dr. Howard at [facility] and benign 03/13/16; [facility] reviewed by myself and ENGINEER AND GEOLOGIST Gonzales. Home Medications Medication Instructions Recorded NK [No Known Home Medication] 08/01/17 Allergies Allergy/AdvReac Type Severity Reaction Status Date / Time No Known Allergies Allergy Verified 07/31/17 22:12 REVIEW OF SYSTEMS: Pain right breast; no family h/o breast cancer PHYSICAL EXAM: GENERAL: Awake, alert, and fully oriented, in no acute distress. HEAD: Normal with no signs of trauma. EYES: sclera anicteric, conjunctiva clear. NECK: Normal ROM, supple without lymphadenopathy, JVD, or masses. ABDOMEN: Soft, nontender, not distended, normoactive bowel sounds, no guarding, no rebound, no masses. No organomegaly. MUSCULOSKELETAL: Normal ROM at all joints. No bony deformities or tenderness. No CVA tenderness. UPPER EXTREMITIES: 2+ pulses, warm, well-perfused. No cyanosis. Cap refill <2 seconds. No peripheral edema. LOWER EXTREMITIES: 2+ pulses, warm, well-perfused. No calf tenderness. No peripheral edema. NEUROLOGICAL: Normal speech, gait not observed. PSYCH: Cooperative. Good eye contact. Appropriate mood and affect. SKIN: Warm, dry, normal turgor, no rashes or lesions noted. BREASTS: ill defined ~ 5.0 cm. right mass w/ overlying erythema at ~ 10 o'clock w/slight ttp and remaining global fibrocystic changes; area of previous ? I and ? at 5 o'clock; no peau d'orange; left breast w/ fibrocystic changes w/o dominant mass and b/l normal nipple areolar complexes. Vital Signs Temperature 97.8 F 08/01/17 08:11 Pulse Rate 79 08/01/17 08:11 Respiratory Rate 18 08/01/17 08:11 Blood Pressure 116/61 08/01/17 08:11 O2 Sat by Pulse Oximetry (%) 100 08/01/17 08:11 Lab Results WBC 10.8 K/mm3 (4.0-10.0) H 07/31/17 22:30 RBC 4.11 M/mm3 (3.60-5.2) 07/31/17 22:30 Hgb 12.5 GM/dL (10.7-15.3) 07/31/17 22:30 Hct 36.7 % (32.4-45.2) 07/31/17 22:30 MCV 89.5 fl (80-96) 07/31/17 22:30 MCHC 34.0 g/dl (32.0-36.0) 07/31/17 22:30 RDW 13.1 % (11.6-15.6) 07/31/17 22:30 Plt Count 238 K/MM3 (134-434) D 07/31/17 22:30 Sodium 139 mmol/L (136-145) 07/31/17 22:30 Potassium 3.7 mmol/L (3.5-5.1) 07/31/17 22:30 Chloride 103 mmol/L (98-107) 07/31/17 22:30 Carbon Dioxide 27 mmol/L (21-32) 07/31/17 22:30 Anion Gap 9 (8-16) 07/31/17 22:30 BUN 14 mg/dL (7-18) 07/31/17 22:30 Creatinine 0.5 mg/dL (0.55-1.02) L 07/31/17 22:30 Random Glucose 90 mg/dL (74-106) 07/31/17 22:30 Calcium 9.1 mg/dL (8.5-10.1) 07/31/17 22:30 Blood Type A POSITIVE 08/01/17 06:04 Antibody Screen Negative 08/01/17 06:04 INR 1.19 (0.82-1.09) H 08/01/17 06:04 IMP: right breast mass PLAN: Suggest wide excision of this area h/e patient should f/u w/ the breast surgeon she was previously seeing who did not recommend this previously; in the interim advise OTC NSAIDS for pain; a/a/u by the patient and her as explained in Albanian and d/w MCKENZIE Rolon. Saúl Andrade MD FACS Visit type - Case Type Case Type: ED Admission - Emergency Emergency Visit: Yes ED Registration Date: 08/01/17 Care time: The patient presented to the Emergency Department on the above date and was hospitalized for further evaluation of their emergent condition. - New patient This patient is new to me today: Yes Date on this admission: 08/01/17 - Critical Care Critical Care patient: No
--- NOTE | 2017-08-08 11:41 | EKG ---
Test Reason : Blood Pressure : / mmHG Vent. Rate : 071 BPM Atrial Rate : 071 BPM P-R Int : 150 ms QRS Dur : 104 ms QT Int : 388 ms P-R-T Axes : 022 102 044 degrees QTc Int : 421 ms NORMAL SINUS RHYTHM RIGHTWARD AXIS INCOMPLETE RIGHT BUNDLE BRANCH BLOCK BORDERLINE ECG NO PREVIOUS ECGS AVAILABLE Confirmed by JACQUIE GIBBS, AMANDA ([id number]) on 08/08/2017 11:41:18 AM Referred By: Confirmed By:AMANDA DHILLON MD
== END 2017-08-01 13:36 | disposition home or self-care (01) ==
LOC: JER 21:39 → JERBED 08-01 01:01 → UNDOADMOB 08-01 01:30
PROVIDERS: ADMIT Internal Medicine; ATTEND Nurse Practitioner Acute Care
PROC: 3E03329 Introduction of Other Anti-infective into Peripheral Vein, Percutaneous Approach (ICD-10-PCS; principal; 2017-08-01)
PROC: 3E033NZ Introduction of Analgesics, Hypnotics, Sedatives into Peripheral Vein, Percutaneous Approach (ICD-10-PCS; 2017-08-01)
DX: N61.1 Abscess of the breast and nipple (principal)
CPT/HCPCS: 36415; 76642-TC-RT; 80053; 81003; 84703; 85025; 85610; 86850; 86900; 86901; 87040; 93005; 93010; 96365; 96375; 99284-25; G0378

== ENCOUNTER 2017-08-17 00:52 | Inpatient (IN) | payer OTHER ==
[2017-08-17 01:23] VITALS: BMI 28.1
--- NOTE | 2017-08-17 01:59 | PDOC ---
History of Present Illness - General History Source: Patient Exam Limitations: No Limitations - History of Present Illness Initial Comments: 08/17/17 03:12 The patient is a 27 year old female presenting with her family, with no significant past medical history, who presents to the emergency department with right breast pain, abscess, and erythema. The patient reports an abscess 1-2 inches in diameter 1 inch away from the right nipple. She reports to have been to a breast specialist 9 months ago which said, it will go away with time. She reports her symptoms worsened two weeks ago so she came to [facility]. She reports to have had labs run and she spoke to a surgeon. She denies recent fevers, chills, headache or dizziness. She denies recent nausea, vomit, diarrhea or constipation. She denies recent dysuria, frequency, urgency or hematuria. She denies recent chest pain or shortness of breath. Allergies: NKA Past surgical history: None reported. Social history: Nonsmoker. Denies EtOH use and recreational drug use. Primary Care Physician: Dr. Kaur <Donavan Acosta - Last Filed: 08/17/17 04:19> <Sandra Sandhu - Last Filed: 08/17/17 20:21> - General Chief Complaint: Wound Stated Complaint: RIGHT SIDE PAIN. Time Seen by Provider: 08/17/17 01:05 Past History <Donavan Acosta - Last Filed: 08/17/17 04:19> - Past Medical History Asthma: No Cancer: No Cardiac Disorders: No COPD: No DVT: No Diabetes: No HTN: No Seizures: No Thyroid Disease: No (Pt denies) - Immunization History Immunization Up to Date: Yes - Suicide/Smoking/Psychosocial Hx Smoking History: Never smoked Have you smoked in the past 12 months: No Information on smoking cessation initiated: No Hx Alcohol Use: No Drug/Substance Use Hx: No Substance Use Type: None Hx Substance Use Treatment: No <Sandra Sandhu - Last Filed: 08/17/17 20:21> - Past Medical History Allergies/Adverse Reactions: Allergies Allergy/AdvReac Type Severity Reaction Status Date / Time No Known Allergies Allergy Verified 08/17/17 01:21 Home Medications: Ambulatory Orders NK [No Known Home Medication] 08/01/17 Review of Systems - Review of Systems Able to Perform ROS?: Yes Comments:: CONSTITUTIONAL: No fever, no chills, no fatigue EYES: No visual changes ENT: No ear pain, no sore throat CARDIOVASCULAR: No chest pain, no palpitations RESPIRATORY: No cough, no SOB GI: No abdominal pain, no nausea, no vomiting, no constipation, no diarrhea GENITOURINARY: No dysuria, no frequency, no hematuria MUSKULOSKELETAL: No backpain, no joint pain, no myalgias SKIN: (+) Right breast pain, abscess, and erythema. NEURO: No headache 08/17/17 03:19 All Other Systems: Reviewed and Negative <Donavan Acosta - Last Filed: 08/17/17 04:19> *Physical Exam - Vital Signs Last Vital Signs Temp Pulse Resp BP Pulse Ox 98.8 F 72 20 119/66 98 08/17/17 01:21 08/17/17 01:21 08/17/17 01:21 08/17/17 01:21 08/17/17 01:21 - Physical Exam Comments: 08/17/17 03:20 GENERAL: Awake, alert, and fully oriented, in no acute distress HEAD: No signs of trauma EYES: PERRLA, EOMI, sclera anicteric, conjunctiva clear ENT: Auricles normal inspection, hearing grossly normal, nares patent, oropharynx clear without exudates. Moist mucosa NECK: Normal ROM, supple, no lymphadenopathy, JVD, or masses LUNGS: Breath sounds equal, clear to auscultation bilaterally. No wheezes, and no crackles HEART: Regular rate and rhythm, normal S1 and S2, no murmurs, rubs or gallops BREAST: +Abscess right breast 10 oclock. 1 inch away from the nipple. 1-2 inches in diameter. ABDOMEN: Soft, nontender, normoactive bowel sounds. No guarding, no rebound. No masses EXTREMITIES: Normal range of motion, no edema. No clubbing or cyanosis. No cords, erythema, or tenderness NEUROLOGICAL: Cranial nerves II through XII grossly intact. Normal speech, normal gait SKIN: Warm, Dry, normal turgor, no rashes or lesions noted. <Donavan Acsota - Last Filed: 08/17/17 04:19> - Vital Signs Last Vital Signs Temp Pulse Resp BP Pulse Ox 98.8 F 72 20 119/66 98 08/17/17 01:21 08/17/17 01:21 08/17/17 01:21 08/17/17 01:21 08/17/17 01:21 <Sandra Sandhu - Last Filed: 08/17/17 20:21> ED Treatment Course - LABORATORY CBC & Chemistry Diagram: 08/17/17 03:15 08/17/17 03:15 <Donavan Acosta - Last Filed: 08/17/17 04:19> - LABORATORY CBC & Chemistry Diagram: 08/17/17 09:00 08/17/17 09:00 <Sandra Sandhu - Last Filed: 08/17/17 20:21> Medical Decision Making - Medical Decision Making 08/17/17 03:34 Pt comes with enlarged breast swelling abscess. Pt has been here before for the same. She was here 2 weeks ago and she was admitted for surgical eval. Kathie saw her and did nothing, as per pt and family. Pt returns because the breast mass is larger and painful. SHe has had biopsies in the past and she was given mixed messages of what it could be. 08/17/17 20:20 Pt will be admitted to the hospitalist service. She will be seen and evaluated by the surgeon who saw her last time. <Sandra Sandhu - Last Filed: 08/17/17 20:21> *DC/Admit/Observation/Transfer - Attestations Scribe Attestion: 08/17/17 03:12 Documentation prepared by Donavan Acosta, acting as medical typist for Sandra Sandhu MD. <Donavan Acosta - Last Filed: 08/17/17 04:19> - Discharge Dispostion Admit: Yes <Sandra Sandhu - Last Filed: 08/17/17 20:21> Diagnosis at time of Disposition: Breast abscess, Breast pain in female, Breast inflammation, Breast cancer - Discharge Dispostion Condition at time of disposition: Guarded
[2017-08-17 03:24] LABS: BASO % 0.6 % (0-2.0); EOS % 3.4 % (0-4.5); MCH 29.8 pg (25.7-33.7); MCHC 33.4 g/dl (32.0-36.0); MEAN CELL VOLUME 89.4 fl (80-96); MEAN PLT VOLUME 9.7 fl (7.5-11.1); NEUT % 55.7 % (42.8-82.8); PLATELET COUNT 255 K/MM3 (134-434); RDW 13.1 % (11.6-15.6); WHITE BLOOD COUNT 8.5 K/mm3 (4.0-10.0)
[2017-08-17 03:36] LABS: INR 1.16 (0.82-1.09); PROTHROMBIN TIME (PATIENT) 13.1 SEC (9.98-11.88)
[2017-08-17 03:46] LABS: ALBUMIN 3.3 g/dl (3.4-5.0); ALK PHOS 67 U/L (45-117); ANION GAP 8 (8-16); BILIRUBIN,TOTAL 0.1 mg/dL (0.2-1.0); CALCIUM 8.4 mg/dL (8.5-10.1); CO2 26 mmol/L (21-32); CREATININE 0.5 mg/dL (0.55-1.02); GLUCOSE,RANDOM 97 mg/dL (74-106); SGOT/AST 12 U/L (15-37); SGPT/ALT 22 U/L (12-78); TOT PROT 6.5 g/dl (6.4-8.2)
[2017-08-17] MEDS ORDERED: AMPICILLIN NA/SULBACTAM NA 3 GM in SODIUM CHLORIDE 100 ML IVPB ONE (05:02)
[2017-08-17] MEDS ORDERED: IBUPROFEN 600 MG TABLET (FP) PO ONE (05:13)
[2017-08-17] MEDS: IBUPROFEN 600 MG TABLET (FP) PO PRN ×2 (05:14→11:17)
--- NOTE | 2017-08-17 05:31 | HP ---
CHIEF COMPLAINT: breast pain PCP: [facility] HISTORY OF PRESENT ILLNESS: This is a 27 year old female with no significant past medical history who presents to the ED with worsening redness and pain to mass/abscess right breast. Pt was seen here 2 weeks ago and evaluated by surgery who recommended pt f/u with breast surgeon. Pt states that the surgeon does not take her emergency medicaid. She reports that this mass started about 1 year ago. As per previous surgical note in chart, USG biopsy was done on 03/13/16 and it was negative. 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" PAST SURGICAL HISTORY: pt denies Social History: Smoking: pt denies Alcohol: pt denies Drugs: pt denies Family History: mother, father and siblings all alive and well; no medical problems Allergies No Known Allergies Allergy (Verified 08/17/17 01:21) HOME MEDICATIONS: 3 Medication Instructions Recorded NK [No Known Home Medication] 08/01/17 REVIEW OF SYSTEMS CONSTITUTIONAL: Absent: fever, chills, diaphoresis, generalized weakness, malaise, loss of appetite, weight change HEENT: Absent: rhinorrhea, nasal congestion, throat pain, throat swelling, difficulty swallowing, mouth swelling, ear pain, eye pain, visual changes CARDIOVASCULAR: Absent: chest pain, syncope, palpitations, irregular heart rate, lightheadedness , peripheral edema RESPIRATORY: Absent: cough, shortness of breath, dyspnea with exertion, orthopnea, wheezing, stridor, hemoptysis GASTROINTESTINAL: Absent: abdominal pain, abdominal distension, nausea, vomiting, diarrhea, constipation, melena, hematochezia GENITOURINARY: Absent: dysuria, frequency, urgency, hesitancy, hematuria, flank pain, genital pain MUSCULOSKELETAL: Absent: myalgia, arthralgia, joint swelling, back pain, neck pain SKIN: Present: right breast redness and pain Absent: rash, itching, pallor HEMATOLOGIC/IMMUNOLOGIC: Absent: easy bleeding, easy bruising, lymphadenopathy, frequent infections ENDOCRINE: Absent: unexplained weight gain, unexplained weight loss, heat intolerance, cold intolerance NEUROLOGIC: Absent: headache, focal weakness or paresthesias, dizziness, unsteady gait, seizure, mental status changes, bladder or bowel incontinence PSYCHIATRIC: Absent: anxiety, depression, suicidal or homicidal ideation, hallucinations. PHYSICAL EXAMINATION Vital Signs - 24 hr 3 08/17/17 08/17/17 01:21 03:57 Temperature 98.8 F Pulse Rate 72 Respiratory 20 Rate Blood Pressure 119/66 O2 Sat by Pulse 98 99 Oximetry (%) GENERAL: Awake, alert, and fully oriented, in no acute distress. HEAD: Normal with no signs of trauma. EYES: Pupils equal, round and reactive to light, extraocular movements intact, sclera anicteric, conjunctiva clear. No lid lag. EARS, NOSE, THROAT: Ears normal, nares patent, oropharynx clear without exudates. Moist mucous membranes. NECK: Normal range of motion, supple without lymphadenopathy, JVD, or masses. LUNGS: Breath sounds equal, clear to auscultation bilaterally. No wheezes, and no crackles. No accessory muscle use. HEART: Regular rate and rhythm, normal S1 and S2 without murmur, rub or gallop. ABDOMEN: Soft, nontender, not distended, normoactive bowel sounds, no guarding, no rebound, no masses. No hepatomegaly or splenomegaly. MUSCULOSKELETAL: Normal range of motion at all joints. No bony deformities or tenderness. No CVA tenderness. UPPER EXTREMITIES: 2+ pulses, warm, well-perfused. No cyanosis. No clubbing. No peripheral edema. LOWER EXTREMITIES: 2+ pulses, warm, well-perfused. No calf tenderness. No peripheral edema. NEUROLOGICAL: Cranial nerves II-XII intact. Normal speech. Normal gait. PSYCHIATRIC: Cooperative. Good eye contact. Appropriate mood and affect. SKIN: Warm, dry, normal turgor, no rashes or lesions noted, normal capillary refill. Right breast noted with redness, warmth, swelling at 10 0'clock, 4.0 cm length x 5.5cm width Laboratory Results - last 24 hr 3 08/17/17 08/17/17 08/17/17 03:13 03:15 03:15 WBC 8.5 RBC 3.96 Hgb 11.8 Hct 35.4 MCV 89.4 MCH 29.8 MCHC 33.4 RDW 13.1 Plt Count 255 MPV 9.7 Neutrophils % 55.7 Lymphocytes % 31.4 Monocytes % 8.9 Eosinophils % 3.4 Basophils % 0.6 PT with INR 13.10 H INR 1.16 H Sodium Potassium Chloride Carbon Dioxide Anion Gap BUN Creatinine Creat Clearance w eGFR Random Glucose Calcium Total Bilirubin AST ALT Alkaline Phosphatase Total Protein Albumin Urine HCG, Qual Negative 3 08/17/17 03:15 WBC RBC Hgb Hct MCV MCH MCHC RDW Plt Count MPV Neutrophils % Lymphocytes % Monocytes % Eosinophils % Basophils % PT with INR INR Sodium 141 Potassium 4.0 Chloride 107 Carbon Dioxide 26 Anion Gap 8 BUN 22 H D Creatinine 0.5 L Creat Clearance w eGFR > 60 Random Glucose 97 Calcium 8.4 L Total Bilirubin 0.1 L D AST 12 L D ALT 22 D Alkaline Phosphatase 67 D Total Protein 6.5 Albumin 3.3 L Urine HCG, Qual ASSESSMENT/PLAN: 27yF with PMH R breast mass/abscess x >1year presented due to increased pain, redness, swelling. right breast mass/abscess - will start on unasyn - surgical consult - will need to f/u with breast surgeon as outpatient DVT PPX - deferred as expected LOS <48h FEN - tolerating po - BMP in am - regular diet Dispo: pt admitted for further observation/surgical evaluation. Visit type - Emergency Visit Emergency Visit: Yes ED Registration Date: 08/17/17 Care time: The patient presented to the Emergency Department on the above date and was hospitalized for further evaluation of their emergent condition. - New Patient This patient is new to me today: Yes Date on this admission: 08/17/17 - Critical Care Critical Care patient: No
[2017-08-17 09:15] LABS: BASO % 0.5 % (0-2.0); EOS % 2.9 % (0-4.5); MCH 29.3 pg (25.7-33.7); MCHC 32.8 g/dl (32.0-36.0); MEAN CELL VOLUME 89.3 fl (80-96); MEAN PLT VOLUME 10.2 fl (7.5-11.1); NEUT % 59.8 % (42.8-82.8); PLATELET COUNT 249 K/MM3 (134-434); RDW 13.3 % (11.6-15.6); WHITE BLOOD COUNT 7.2 K/mm3 (4.0-10.0)
[2017-08-17 09:39] LABS: ANION GAP 8 (8-16); CALCIUM 8.3 mg/dL (8.5-10.1); CO2 24 mmol/L (21-32); CREATININE 0.5 mg/dL (0.55-1.02); GLUCOSE,RANDOM 93 mg/dL (74-106); MAGNESIUM 2.2 mg/dL (1.8-2.4)
[2017-08-17] MEDS: AMPICILLIN NA/SULBACTAM NA 3 GM in SODIUM CHLORIDE 100 ML IVPB SCH ×3 (10:40→20:36)
--- NOTE | 2017-08-17 12:09 | CONSULT ---
- Consultation REQUESTING PROVIDER: CONSULT REQUEST: We have been asked to surgically evaluate this patient for recurrent/persistant right breast issues PCP:Shahbaz Lowe NP HISTORY OF PRESENT ILLNESS: Patient was previously seen by me 08/01/17; at that time she was d/c'ed to office f/u for ? reasons h/e she did not f/u with me nor the original breast surgeon she saw at [facility]; she now returns w/a persistent right breast mass and pain. PMHx: none PSHx: right breast bx. Home Medications Medication Instructions Recorded NK [No Known Home Medication] 08/01/17 Allergies Allergy/AdvReac Type Severity Reaction Status Date / Time No Known Allergies Allergy Verified 08/17/17 01:21 PHYSICAL EXAM: GENERAL: Awake, alert, and fully oriented, in no acute distress. HEAD: Normal with no signs of trauma. EYES: sclera anicteric, conjunctiva clear. NECK: Normal ROM, supple without lymphadenopathy, JVD, or masses. ABDOMEN: Soft, nontender, not distended, normoactive bowel sounds, no guarding, no rebound, no masses. No organomegaly. MUSCULOSKELETAL: Normal ROM at all joints. No bony deformities or tenderness. No CVA tenderness. UPPER EXTREMITIES: 2+ pulses, warm, well-perfused. No cyanosis. Cap refill <2 seconds. No peripheral edema. LOWER EXTREMITIES: 2+ pulses, warm, well-perfused. No calf tenderness. No peripheral edema. NEUROLOGICAL: Normal speech, gait not observed. PSYCH: Cooperative. Good eye contact. Appropriate mood and affect. SKIN: Warm, dry, normal turgor, no rashes or lesions noted. Right breast-mass RUQ w/ soft area c/w abscess; left breast unremarkable; no axillary adenopathy. nipple areola complex normal bilaterally. Vital Signs Temperature 97.9 F 08/17/17 04:20 Pulse Rate 68 08/17/17 04:20 Respiratory Rate 20 08/17/17 04:20 Blood Pressure 102/56 08/17/17 04:20 O2 Sat by Pulse Oximetry (%) 100 08/17/17 04:20 Lab Results WBC 7.2 K/mm3 (4.0-10.0) 08/17/17 09:00 RBC 4.05 M/mm3 (3.60-5.2) 08/17/17 09:00 Hgb 11.8 GM/dL (10.7-15.3) 08/17/17 09:00 Hct 36.1 % (32.4-45.2) 08/17/17 09:00 MCV 89.3 fl (80-96) 08/17/17 09:00 MCHC 32.8 g/dl (32.0-36.0) 08/17/17 09:00 RDW 13.3 % (11.6-15.6) 08/17/17 09:00 Plt Count 249 K/MM3 (134-434) 08/17/17 09:00 Sodium 140 mmol/L (136-145) 08/17/17 09:00 Potassium 4.3 mmol/L (3.5-5.1) 08/17/17 09:00 Chloride 108 mmol/L (98-107) H 08/17/17 09:00 Carbon Dioxide 24 mmol/L (21-32) 08/17/17 09:00 Anion Gap 8 (8-16) 08/17/17 09:00 BUN 16 mg/dL (7-18) D 08/17/17 09:00 Creatinine 0.5 mg/dL (0.55-1.02) L 08/17/17 09:00 Random Glucose 93 mg/dL (74-106) 08/17/17 09:00 Calcium 8.3 mg/dL (8.5-10.1) L 08/17/17 09:00 INR 1.16 (0.82-1.09) H 08/17/17 03:15 Previous imaging reviewed IMP: right breast mass w/previous benign bx. and now w/secondary infection PLAN: For I and D110/20/16 and excisional bx.; r/b/t/a/'s d/w patient in depth in [place]. Saúl Andrade MD FACS Visit type - Case Type Case Type: ED Admission - Emergency Emergency Visit: Yes ED Registration Date: 08/17/17 Care time: The patient presented to the Emergency Department on the above date and was hospitalized for further evaluation of their emergent condition. - New patient This patient is new to me today: Yes Date on this admission: 08/18/17 - Critical Care Critical Care patient: No
--- NOTE | 2017-08-17 14:23 | PN ---
Physical Exam: SUBJECTIVE: Patient seen and examined at the bedside. Denies chest pain or shortness of breath. Has intermittent pain on right breast that is relieved with Motrin. OBJECTIVE: Vital Signs Period Temp Pulse Resp BP Sys/Benson Pulse Ox Last 24 Hr 97.9 F-98.8 F 68-72 20-20 102-119/56-66 98-100 GENERAL: The patient is awake, alert, and fully oriented, in no acute distress. HEAD: Normal with no signs of trauma. EYES: PERRL, extraocular movements intact, sclera anicteric, conjunctiva clear. No ptosis. ENT: Ears normal, nares patent, oropharynx clear without exudates, moist mucous membranes. NECK: Trachea midline, full range of motion, supple. LUNGS: Breath sounds equal, clear to auscultation bilaterally, no wheezes, no crackles, no accessory muscle use. HEART: Regular rate and rhythm, S1, S2 without murmur, rub or gallop. ABDOMEN: Soft, nontender, nondistended, normoactive bowel sounds, no guarding, no rebound, no hepatosplenomegaly, no masses. EXTREMITIES: 2+ pulses, warm, well-perfused, no edema. NEUROLOGICAL: Normal speech, steady gait PSYCH: Normal mood, normal affect. SKIN: right breast abscess, no drainage Laboratory Results - last 24 hr 08/17/17 08/17/17 08/17/17 03:13 03:15 03:15 WBC 8.5 RBC 3.96 Hgb 11.8 Hct 35.4 MCV 89.4 MCH 29.8 MCHC 33.4 RDW 13.1 Plt Count 255 MPV 9.7 Neutrophils % 55.7 Lymphocytes % 31.4 Monocytes % 8.9 Eosinophils % 3.4 Basophils % 0.6 PT with INR 13.10 H INR 1.16 H Sodium Potassium Chloride Carbon Dioxide Anion Gap BUN Creatinine Creat Clearance w eGFR POC Glucometer Random Glucose Calcium Phosphorus Magnesium Total Bilirubin AST ALT Alkaline Phosphatase Total Protein Albumin Urine HCG, Qual Negative 08/17/17 08/17/17 08/17/17 03:15 06:36 09:00 WBC 7.2 RBC 4.05 Hgb 11.8 Hct 36.1 MCV 89.3 MCH 29.3 MCHC 32.8 RDW 13.3 Plt Count 249 MPV 10.2 Neutrophils % 59.8 Lymphocytes % 29.8 Monocytes % 7.0 Eosinophils % 2.9 Basophils % 0.5 PT with INR INR Sodium 141 Potassium 4.0 Chloride 107 Carbon Dioxide 26 Anion Gap 8 BUN 22 H D Creatinine 0.5 L Creat Clearance w eGFR > 60 POC Glucometer 97 Random Glucose 97 Calcium 8.4 L Phosphorus Magnesium Total Bilirubin 0.1 L D AST 12 L D ALT 22 D Alkaline Phosphatase 67 D Total Protein 6.5 Albumin 3.3 L Urine HCG, Qual 08/17/17 09:00 WBC RBC Hgb Hct MCV MCH MCHC RDW Plt Count MPV Neutrophils % Lymphocytes % Monocytes % Eosinophils % Basophils % PT with INR INR Sodium 140 Potassium 4.3 Chloride 108 H Carbon Dioxide 24 Anion Gap 8 BUN 16 D Creatinine 0.5 L Creat Clearance w eGFR POC Glucometer Random Glucose 93 Calcium 8.3 L Phosphorus 4.0 Magnesium 2.2 Total Bilirubin AST ALT Alkaline Phosphatase Total Protein Albumin Urine HCG, Qual Active Medications Generic Name Dose Route Start Last Admin Trade Name Freq PRN Reason Stop Dose Admin Ampicillin Sodium/Sulbactam 100 mls @ 200 mls/hr 08/17/17 09:00 08/17/17 10: 40 Sodium 3 gm/ Sodium Chloride IVPB 08/18/17 08:59 200 mls/hr Q6H-IV DICK Administration Ibuprofen 600 mg 08/17/17 05:07 08/17/17 11:17 Motrin - PO 600 mg Q6H PRN Administration FEVER ASSESSMENT/PLAN: Patient is a 27 year old female with a no significant past medical history presents to the ED on 08/17/2017 with recurrent abscess and inflammation of the right breast. Patient was most recently seen at [place] 2 weeks prior for this same abscess and was evaluated by surgery. Surgery recommended that patient follow up with breast surgeon upon discharge. Patient states that when she attempted to make an appointment with the surgeon, she was told that her insurance (emergency medicaid) was not accepted. She returns to the ED as she noted that her right breast abscess was getting more painful. One exam, right breast is noted to be reddened, with swelling at the the 10 0' clock position. Measures apx 4.0 cm L x 5.5 cm W. She states Motrin helps relieve the pain. Imaging: Chest xray 08/17/2017: clear lungs Breast ultrasound right 08/01/2017: Right breast 10 to 11:00 position: 3.6 x 3 x 3.29 cm area of irregular hypoechogenicity is with edema and hypervascularity consistent with an abscess . Right breast mass/abscess with inflammation Started on Unasyn overnight No WBC no fever at this time, continue antibiotics for now To be seen by surgery (Dr. Andrade) Wound not draining, no wound culture ordered due to this F.E.N. Fluids: tolerating PO Electrolytes: monitor Nutrition: regular Prophylaxis: DVT: SCDs GI: Protonix Disposition: full code. Visit type - Emergency Visit Emergency Visit: Yes ED Registration Date: 08/17/17 Care time: The patient presented to the Emergency Department on the above date and was hospitalized for further evaluation of their emergent condition. - New Patient This patient is new to me today: Yes Date on this admission: 08/17/17 - Critical Care Critical Care patient: No - Discharge Referral Referred to [facility] Med P.C.: No
[2017-08-17] MEDS ORDERED: oxyCODONE HCL 5 MG TABLET PO PRN (14:50)
[2017-08-17] MEDS ORDERED: ACETAMINOPHEN 325 MG TABLET (FP) PO PRN (14:51)
[2017-08-17] MEDS ORDERED: PT OWN MED DRAWER 7, Y5N ONE (20:14)
[2017-08-18] MEDS: AMPICILLIN NA/SULBACTAM NA 3 GM in SODIUM CHLORIDE 100 ML IVPB SCH (02:11)
[2017-08-18] MEDS: PANTOPRAZOLE 40 MG TABLET (FP) PO SCH (10:56)
[2017-08-18] MEDS: IBUPROFEN 600 MG TABLET (FP) PO PRN ×2 (10:57→16:57)
--- NOTE | 2017-08-18 12:10 | PN ---
Physical Exam: SUBJECTIVE: Patient seen and examined at the bedside. OBJECTIVE: Patient for I&D of right breast abscess in a.m. with Dr. Andrade NPO @ midnight, IVF to start once pt is NPO Continue Vital Signs Period Temp Pulse Resp BP Sys/Benson Pulse Ox Last 24 Hr 97.4 F-98.2 F 67-75 18-20 107-114/49-63 99 GENERAL: The patient is awake, alert, and fully oriented, in no acute distress. HEAD: Normal with no signs of trauma. EYES: PERRL, extraocular movements intact, sclera anicteric, conjunctiva clear. No ptosis. ENT: Ears normal, nares patent, oropharynx clear without exudates, moist mucous membranes. NECK: Trachea midline, full range of motion, supple. LUNGS: Breath sounds equal, clear to auscultation bilaterally, no wheezes, no crackles, no accessory muscle use. HEART: Regular rate and rhythm, S1, S2 without murmur, rub or gallop. ABDOMEN: Soft, nontender, nondistended, normoactive bowel sounds, no guarding, no rebound, no hepatosplenomegaly, no masses. EXTREMITIES: 2+ pulses, warm, well-perfused, no edema. NEUROLOGICAL: Normal speech, steady gait PSYCH: Normal mood, normal affect. SKIN: right breast abscess, no drainage Active Medications Generic Name Dose Route Start Last Admin Trade Name Freq PRN Reason Stop Dose Admin Acetaminophen 650 mg 08/17/17 14:51 Tylenol - PO Q6H PRN FEVER OR PAIN Ibuprofen 600 mg 08/17/17 05:07 08/18/17 10:57 Motrin - PO 600 mg Q6H PRN Administration FEVER Oxycodone HCl 5 mg 08/17/17 14:50 Roxicodone - PO Q6H PRN PAIN Pantoprazole Sodium 40 mg 08/18/17 10:00 08/18/17 10:56 Protonix - PO 40 mg DAILY DICK Administration ASSESSMENT/PLAN: Patient is a 27 year old female (grava 1 - has 5 yr old child) with a no significant past medical history presents to the ED on 08/17/2017 with recurrent abscess and inflammation of the right breast. Patient was most recently seen at [place] 2 weeks prior for this same abscess and was evaluated by surgery. Surgery recommended that patient follow up with breast surgeon upon discharge. Patient states that when she attempted to make an appointment with the surgeon, she was told that her insurance (emergency medicaid) was not accepted. She returns to the ED as she noted that her right breast abscess was getting more painful. One exam, right breast is noted to be reddened, with swelling at the the 10 0' clock position. Measures apx 4.0 cm L x 5.5 cm W. She states Motrin helps relieve the pain. Unable to send culture of this wound since the wound is closed, no drainage at this time. Imaging: Chest xray 08/17/2017: clear lungs Breast ultrasound right 08/01/2017: Right breast 10 to 11:00 position: 3.6 x 3 x 3.29 cm area of irregular hypoechogenicity is with edema and hypervascularity consistent with an abscess . Right breast mass/abscess with inflammation On Unasyn day #2 No WBC no fever at this time, continue antibiotics for now/suspect that wound may begin to drain For I&D tomorrow, NPO at midnight Wound not currently draining, no wound culture ordered secondary to this Monitor pain, Motrin as needed, if pain severe, please give oxycodone until pain is controlled Start IVF once patient is NPO F.E.N. Fluids: tolerating PO, start IVF at midnight Electrolytes: monitor Nutrition: regular Prophylaxis: DVT: SCDs GI: Protonix Disposition: full code. Visit type - Emergency Visit Emergency Visit: Yes ED Registration Date: 08/17/17 Care time: The patient presented to the Emergency Department on the above date and was hospitalized for further evaluation of their emergent condition. - New Patient This patient is new to me today: No - Critical Care Critical Care patient: No - Discharge Referral Referred to [facility] Med P.C.: No
[2017-08-19] MEDS ORDERED: SODIUM CHLORIDE 1,000 ML IV SCH
[2017-08-19 08:19] LABS: BASO % 0.7 % (0-2.0); MCH 29.4 pg (25.7-33.7); MCHC 32.8 g/dl (32.0-36.0); MEAN CELL VOLUME 89.7 fl (80-96); MEAN PLT VOLUME 9.9 fl (7.5-11.1); NEUT % 58.1 % (42.8-82.8); PLATELET COUNT 237 K/MM3 (134-434); RDW 13.4 % (11.6-15.6); WHITE BLOOD COUNT 7.3 K/mm3 (4.0-10.0)
[2017-08-19 08:39] LABS: ANION GAP 6 (8-16); CO2 25 mmol/L (21-32); GLUCOSE,RANDOM 87 mg/dL (74-106)
[2017-08-19 08:43] LABS: ALK PHOS 59 U/L (45-117); BILIRUBIN,TOTAL 0.5 mg/dL (0.2-1.0); CREATININE 0.5 mg/dL (0.55-1.02); SGOT/AST 11 U/L (15-37); SGPT/ALT 21 U/L (12-78); TOT PROT 6.1 g/dl (6.4-8.2)
[2017-08-19] MEDS: PANTOPRAZOLE 40 MG TABLET (FP) PO SCH (09:28)
--- NOTE | 2017-08-19 10:20 | PN ---
Physical Exam: SUBJECTIVE: Patient seen and examined. OBJECTIVE: NPO for I&D today of right breast abscess Vital Signs Period Temp Pulse Resp BP Sys/Benson Pulse Ox Last 24 Hr 97.5 F-98.1 F 60-74 18-20 101-116/53-66 98 GENERAL: The patient is awake, alert, and fully oriented, in no acute distress. HEAD: Normal with no signs of trauma. EYES: PERRL, extraocular movements intact, sclera anicteric, conjunctiva clear. No ptosis. ENT: Ears normal, nares patent, oropharynx clear without exudates, moist mucous membranes. NECK: Trachea midline, full range of motion, supple. LUNGS: Breath sounds equal, clear to auscultation bilaterally, no wheezes, no crackles, no accessory muscle use. HEART: Regular rate and rhythm, S1, S2 without murmur, rub or gallop. ABDOMEN: Soft, nontender, nondistended, normoactive bowel sounds, no guarding, no rebound, no hepatosplenomegaly, no masses. EXTREMITIES: 2+ pulses, warm, well-perfused, no edema. NEUROLOGICAL: Normal speech, steady gait PSYCH: Normal mood, normal affect. SKIN: right breast abscess, no drainage/for I&D today Laboratory Results - last 24 hr 08/19/17 08/19/17 07:45 07:45 WBC 7.3 RBC 4.02 Hgb 11.8 Hct 36.1 MCV 89.7 MCH 29.4 MCHC 32.8 RDW 13.4 Plt Count 237 MPV 9.9 Neutrophils % 58.1 Lymphocytes % 30.8 Monocytes % 7.4 Eosinophils % 3.0 Basophils % 0.7 Sodium 142 Potassium 4.6 Chloride 111 H Carbon Dioxide 25 Anion Gap 6 L BUN 13 Creatinine 0.5 L Creat Clearance w eGFR > 60 Random Glucose 87 Calcium 8.0 L Total Bilirubin 0.5 D AST 11 L ALT 21 Alkaline Phosphatase 59 Total Protein 6.1 L Albumin 3.0 L Active Medications Generic Name Dose Route Start Last Admin Trade Name Freq PRN Reason Stop Dose Admin Acetaminophen 650 mg 08/17/17 14:51 Tylenol - PO Q6H PRN FEVER OR PAIN Sodium Chloride 1,000 mls @ 75 mls/hr 08/19/17 00:00 08/19/17 00:00 Normal Saline - IV 75 mls/hr ASDIR DICK Administration Ibuprofen 600 mg 08/17/17 05:07 08/18/17 16:57 Motrin - PO 600 mg Q6H PRN Administration FEVER Oxycodone HCl 5 mg 08/17/17 14:50 Roxicodone - PO Q6H PRN PAIN Pantoprazole Sodium 40 mg 08/18/17 10:00 08/19/17 09:28 Protonix - PO 40 mg DAILY DICK Administration ASSESSMENT/PLAN: Patient is a 27 year old female (grava 1 - has 5 yr old child) with a no significant past medical history presents to the ED on 08/17/2017 with recurrent abscess and inflammation of the right breast. Patient was most recently seen at [place] 2 weeks prior for this same abscess and was evaluated by surgery. Surgery recommended that patient follow up with breast surgeon upon discharge. Patient states that when she attempted to make an appointment with the surgeon, she was told that her insurance (emergency medicaid) was not accepted. She returns to the ED as she noted that her right breast abscess was getting more painful. One exam, right breast is noted to be reddened, with swelling at the the 10 0' clock position. Measures apx 4.0 cm L x 5.5 cm W. She states Motrin helps relieve the pain. Unable to send culture of this wound since the wound is closed, no drainage at this time. Imaging: Chest xray 08/17/2017: clear lungs Breast ultrasound right 08/01/2017: Right breast 10 to 11:00 position: 3.6 x 3 x 3.29 cm area of irregular hypoechogenicity is with edema and hypervascularity consistent with an abscess . Right breast mass/abscess with inflammation On Unasyn day #3 No WBC no fever at this time, continue antibiotics For I&D today, NPO Wound not currently draining, no wound culture ordered secondary to this Monitor pain On IVF F.E.N. Fluids:IVF while NPO Electrolytes: monitor Nutrition: regular after procedure Prophylaxis: DVT: SCDs GI: Protonix Disposition: full code. Visit type - Emergency Visit Emergency Visit: Yes ED Registration Date: 08/17/17 Care time: The patient presented to the Emergency Department on the above date and was hospitalized for further evaluation of their emergent condition. - New Patient This patient is new to me today: No - Critical Care Critical Care patient: No - Discharge Referral Referred to [facility] Med P.C.: No
[2017-08-19] MEDS ORDERED: MIDAZOLAM HCL 2 MG/2 ML SINGLE DOSE VIAL ONE (15:30)
[2017-08-19] MEDS ORDERED: PROPOFOL 20 ML ONE (15:34)
[2017-08-19] MEDS ORDERED: SUCCINYLCHOLINE CHLORIDE 200 MG/10 ML VIAL ONE (15:35)
[2017-08-19] MEDS ORDERED: LIDOCAINE HCL 1%, 10 MG/ML (50 mL VIAL) IJ ONE (15:50)
[2017-08-19] MEDS ORDERED: ONDANSETRON 4 MG/2 ML VIAL IVPUSH PRN ×2 (16:22→16:32)
[2017-08-19] MEDS ORDERED: IBUPROFEN 600 MG TABLET (FP) PO PRN (16:32)
[2017-08-19] MEDS ORDERED: ACETAMINOPHEN 325 MG TABLET (FP) PO PRN (16:32)
--- NOTE | 2017-08-19 17:49 | OP ---
Operative Note - Note: Operative Date: 08/19/17 Pre-Operative Diagnosis: right breast abscess Operation: I and D right breast abscess and incisional bx. Surgeon: Saúl Andrade Anesthesiologist/PRINCIPAL LAW CLERK: Kalpana Aguilar MD Anesthesia: General Specimens Removed: right breast skin x 2 and right breast tissue; C and S Estimated Blood Loss (mls): 10
[2017-08-19] MEDS: SODIUM CHLORIDE 1,000 ML IV SCH ×2 (18:22→20:30)
[2017-08-19] MEDS: oxyCODONE HCL 5 MG TABLET PO PRN (18:34)
[2017-08-19] MEDS ORDERED: PT OWN MED DRAWER 7, Y5N ONE (18:34)
--- NOTE | 2017-08-20 01:45 | EKG ---
Test Reason : Blood Pressure : / mmHG Vent. Rate : 070 BPM Atrial Rate : 070 BPM P-R Int : 150 ms QRS Dur : 114 ms QT Int : 390 ms P-R-T Axes : 036 096 049 degrees QTc Int : 421 ms NORMAL SINUS RHYTHM RIGHTWARD AXIS INCOMPLETE RIGHT BUNDLE BRANCH BLOCK BORDERLINE ECG WHEN COMPARED WITH ECG OF 01-AUG-2017 11:04, NO SIGNIFICANT CHANGE WAS FOUND Confirmed by FAWAD ALAN MD ([id number]) on 08/20/2017 1:45:20 AM Referred By: Confirmed By:FAWAD ALAN MD
[2017-08-20] MEDS: oxyCODONE HCL 5 MG TABLET PO PRN (02:01)
[2017-08-20 06:06] VITALS: TEMP 97.9
--- NOTE | 2017-08-20 07:22 | PN ---
Progress Note (short form) - Note Progress Note: POD #1 Alert. No acute events over night per RN notes. C/o mild incisional tenderness. Adequate pain control via PO pain meds. AVSS. Afebrile. Gen: alert Skin: Right breast dressing taken down, surgical wound at ~ 9 o'clock position, 2.54 x 2.54 x 1 cm. Clean. Problem List - Problems (1) Breast abscess Assessment/Plan: POD #1 s/p I and D right breast abscess and incisional bx. Dressing changed on rounds Daily dressing changes as ordered. No need for VNS as wound is very shallow (no need for packing) Shower daily then apply clean dry dressing. f/u Surgical pathology Cont medical management Code(s): N61.1 - ABSCESS OF THE BREAST AND NIPPLE
[2017-08-20 07:56] LABS: BASO % 0.3 % (0-2.0); MCH 28.9 pg (25.7-33.7); MCHC 32.3 g/dl (32.0-36.0); MEAN CELL VOLUME 89.5 fl (80-96); MEAN PLT VOLUME 10.2 fl (7.5-11.1); NEUT % 81.5 % (42.8-82.8); PLATELET COUNT 263 K/MM3 (134-434); WHITE BLOOD COUNT 12.5 K/mm3 (4.0-10.0)
[2017-08-20 08:14] LABS: ALBUMIN 3.2 g/dl (3.4-5.0); ALK PHOS 63 U/L (45-117); ANION GAP 13 (8-16); BILIRUBIN,TOTAL 0.5 mg/dL (0.2-1.0); CO2 22 mmol/L (21-32); CREATININE 0.4 mg/dL (0.55-1.02); GLUCOSE,RANDOM 100 mg/dL (74-106); SGOT/AST 12 U/L (15-37); SGPT/ALT 22 U/L (12-78); TOT PROT 6.5 g/dl (6.4-8.2)
--- NOTE | 2017-08-20 09:21 | DS ---
Physical Exam: SUBJECTIVE: Patient seen and examined OBJECTIVE: Vital Signs Period Temp Pulse Resp BP Sys/Benson Pulse Ox Last 24 Hr 97.5 F-98.6 F 62-77 17-20 106-116/52-78 99-100 PHYSICAL EXAM GENERAL: The patient is awake, alert, and fully oriented, in no acute distress. HEAD: Normal with no signs of trauma. EYES: PERRL, extraocular movements intact, sclera anicteric, conjunctiva clear. No ptosis. ENT: Ears normal, nares patent, oropharynx clear without exudates, moist mucous membranes. NECK: Trachea midline, full range of motion, supple. LUNGS: Breath sounds equal, clear to auscultation bilaterally, no wheezes, no crackles, no accessory muscle use. HEART: Regular rate and rhythm, S1, S2 without murmur, rub or gallop. ABDOMEN: Soft, nontender, nondistended, normoactive bowel sounds, no guarding, no rebound, no hepatosplenomegaly, no masses. EXTREMITIES: 2+ pulses, warm, well-perfused, no edema. NEUROLOGICAL: Normal speech, steady gait PSYCH: Normal mood, normal affect. SKIN: s/p I&D for right breast abscess, dressing intact LABS Laboratory Results - last 24 hr 08/20/17 08/20/17 06:00 06:35 WBC 12.5 H D RBC 4.13 Hgb 12.0 Hct 37.0 MCV 89.5 MCH 28.9 MCHC 32.3 RDW 13.0 Plt Count 263 MPV 10.2 Neutrophils % 81.5 D Lymphocytes % 13.3 D Monocytes % 4.9 Eosinophils % 0.0 D Basophils % 0.3 Sodium 141 Potassium 4.0 Chloride 106 Carbon Dioxide 22 Anion Gap 13 BUN 10 D Creatinine 0.4 L Creat Clearance w eGFR > 60 Random Glucose 100 Calcium 9.0 Total Bilirubin 0.5 AST 12 L ALT 22 Alkaline Phosphatase 63 Total Protein 6.5 Albumin 3.2 L HOSPITAL COURSE: Date of Admission:08/19/17 Date of Discharge: 08/20/17 ASSESSMENT/PLAN: Patient is a 27 year old female (grava 1 - has 5 yr old child) with a no significant past medical history presents to the ED on 08/17/2017 with recurrent abscess and inflammation of the right breast. Patient was most recently seen at [place] 2 weeks prior for this same abscess and was evaluated by surgery. Surgery recommended that patient follow up with breast surgeon upon discharge. Patient states that when she attempted to make an appointment with the surgeon, she was told that her insurance (emergency medicaid) was not accepted. She returns to the ED as she noted that her right breast abscess was getting more painful. Imaging: Chest xray 08/17/2017: clear lungs Breast ultrasound right 08/01/2017: Right breast 10 to 11:00 position: 3.6 x 3 x 3.29 cm area of irregular hypoechogenicity is with edema and hypervascularity consistent with an abscess . Cellulitis Right breast mass/abscess with inflammation s/p I&D with Dr. Andrade/POD #1 Has been on Unasyn since admission, now on Amox 875/125 BID for 10 more days Patient has no insurance at this time, but willing to pay out of pocket for her medications Follow up with Dr. Andrade within 7 to 10 days Mild leukocytosis, likely secondary to procedure No signs of infection Motrin/Tylenol for pain Disposition: discharge home today. Will need to follow up with Dr. Andrade within 7-10 days for post op, dressing/wound care instructions provided in discharge instructions. full code. Minutes to complete discharge: 60 Discharge Summary Reason For Visit: ABSCESS OF BREAT, BREAST INFLAMMATION Current Active Problems Breast abscess (Acute) Breast cancer (Acute) Breast inflammation (Acute) Breast pain in female (Acute) Condition: Stable - Instructions Diet, Activity, Other Instructions: Dr. Andrade Discharge Instructions Dear ANTONIO RAMIRES, Post Operative Instructions Physical activity Resume your normal everyday activity as tolerated no heavy lifting or exercise until seen by your surgeon. You may walk unlimited amounts of and climb stairs. You may resume driving the car when you feel safe and comfortable behind the wheel. Wound care If you have a bandage, leave it on, and keep dry for 48 - 72 hours. After that time discard the outer bandage. If there are tapes on the skin under the outer bandage, leave them in place. They will peel off in the next 7 to 10 days. Do Not peel them off. You may shower 2 days after surgery. If there are tapes present on the skin, they can get wet. Diet There are no dietary restrictions. Eat healthy, high-fiber foods. Drink 6 to 8 glasses of liquid each day. This will assist in keeping your bowels are regular. Pain management You may take Tylenol or acetaminophen or Ibuprofen (for example, Motrin, Advil etc.) Any pain prescription medication ordered should be taken as prescribed for moderate to severe pain. Call Dr. Andrade for any of the following: Severe pain not relieved by medication Fever of 101 or higher Excessive bleeding or drainage on dressing Inability to urinate Continue to take Amoxicillin 875mg twice a day for 10 more days. Call the office at [phone] for a post operative appointment in 7 - 10 days. Referrals: Saúl Andrade MD [Staff Physician] - Amy Rodriguez MD [Primary Care Provider] - Disposition: HOME - Home Medications Comprehensive Discharge Medication List: Ambulatory Orders Amoxicillin/Potassium Clav [Augmentin 875-125 Tablet] 1 each PO BID #20 tablet 08/20/17 This patient is new to me today: No Emergency Visit: Yes ED Registration Date: 08/19/17 Care time: The patient presented to the Emergency Department on the above date and was hospitalized for further evaluation of their emergent condition. Critical Care patient: No - Discharge Referral Referred to [facility] Med P.C.: Yes Physician Referral: Gareth Garcia MD ([facility] Med)
[2017-08-20 09:28] VITALS: BP 114/54; PULSE 63
[2017-08-20] MEDS ORDERED: PANTOPRAZOLE 40 MG TABLET (FP) PO SCH (10:00)
--- NOTE | 2017-08-23 10:24 | PATH ---
Surgical Pathology Report Patient Name: ANTONIO RAMIRES [facility]. Rec. #: [id number] /Age/Gender: 1990 (Age: 27) / F Account: [id number] Location: [address] [place] [address]/[facility] Taken: 08/19/2017 Received: 08/20/2017 Reported: 08/23/2017 Physicians: MD Shahbaz Knowles F.N.P. Specimen(s) Received A: RIGHT BREAST TISSUE B: RIGHT BREAST SKIN Clinical History Right breast abscess Final Diagnosis A. SKIN AND TISSUE, BREAST, RIGHT, EXCISION: BENIGN FIBROADIPOSE TISSUE WITH MARKED ACUTE AND CHRONIC GRANULOMATOUS INFLAMMATION AND FIBROSIS. SPECIAL STAINS FOR ACID FAST BACILLI (AFB) AND FUNGAL STAIN GOMORI METHENAMINE SILVER (GMS) ARE PENDING AND WILL BE REPORTED AN ADDENDUM. B. SKIN, BREAST, RIGHT, EXCISION: SKIN AND UNDERLYING SUBCUTANEOUS TISSUE WITH MARKED ACUTE AND CHRONIC INFLAMMATION AND REACTIVE CHANGES. Electronically Signed Amparo Lopez M.D. Addendum Reported: 08/23/2017 Addendum Diagnosis Special stains for Acid fast bacilli (AFB) and fungal stain Gomori methenamine silver (GMS) are negative. Amparo Lopez M.D. Gross Description A. Received fresh labeled "right breast tissue," is a 0.9 x 0.8 x 0.2 cm adhikari-yellow, irregular, unoriented portion of fibroadipose tissue. The specimen is submitted in toto in one cassette. B. Received in formalin labeled "right breast skin," are 2 adhikari, irregular, unoriented portions of skin measuring 3.0 x 0.3 cm and 3.0 x 0.8 cm. No discrete lesions are identified grossly. Application Design Engineer sections are submitted in one cassette. 08/20/201708/20/2017
--- NOTE | 2017-08-27 11:01 | OP ---
DATE OF OPERATION: 08/18/2017 PREOPERATIVE DIAGNOSES: Right breast abscess and mass. POSTOPERATIVE DIAGNOSES: Right breast abscess and mass. PROCEDURES: Incision and drainage of right breast abscess. Incisional biopsy, right breast mass. SURGEON: Saúl Andrade MD ANESTHESIA: General. OPERATIVE FINDINGS: There was a subcutaneous right breast abscess and a known right breast mass previously biopsied and found to be benign. The rest of the findings were unremarkable. PROCEDURE: The patient was placed on the operating table in supine position, and after the induction of general anesthesia, the patient's right breast was prepped with ChloraPrep and draped in sterile fashion. A timeout was taken. An incision was made over the abscess. Purulent drainage was sent for culture and sensitivity. Devitalized skin and subcutaneous tissue was sharply excised using the scalpel and sent for pathological examination. A portion of the underlying breast mass was excised and sent for pathology, as well. Hemostasis was secured with electrocautery and the wound copiously irrigated with sterile water and packed with 1/4-inch plain gauze. Dry, sterile dressings were placed and the procedure terminated at this point. The patient aroused from general anesthesia, and transferred to the postanesthesia care unit in stable condition, awake and alert. ESTIMATED BLOOD LOSS: Minimal. DRAINS: None. SPECIMEN: Right breast skin, portion of right breast mass and culture and sensitivity to Microbiology. I, Saúl Andrade, was physically present in the operating room from the time the patient was placed on the operating room table until she was transferred to the postanesthesia care unit in my accompaniment. MD PARAMJIT Knowles/[id number]
== END 2017-08-20 10:20 | disposition home or self-care (01) | DRG 363 ==
LOC: JER 00:52 → JERBED 04:20 → J6S 06:37 → OBSVTOIN 08-19 11:29
PROVIDERS: ADMIT Internal Medicine; ATTEND Nurse Practitioner Family
PROC: 0H9T0ZZ Drainage of Right Breast, Open Approach (ICD-10-PCS; principal; 2017-08-19 13:30)
PROC: 0HBT0ZX Excision of Right Breast, Open Approach, Diagnostic (ICD-10-PCS; 2017-08-19 13:30)
DX: N61.1 Abscess of the breast and nipple (principal); D72.829 Elevated white blood cell count, unspecified
CPT/HCPCS: 36415; 71020-TC; 80048; 80053; 83735; 84100; 84703; 85025; 85610; 87070; 87102; 87205; 87210; 88305-TC; 93005; 93010; 94760; 99283-25; G0378

== ENCOUNTER 2019-08-06 19:29 | Emergency (ER) | payer OTHER ==
[2019-08-06 19:42] VITALS: BP 105/59; PULSE 69; TEMP 98.4; BMI 30.7
--- NOTE | 2019-08-06 20:33 | PDOC ---
History of Present Illness - General Chief Complaint: Sore Throat Stated Complaint: SORE THROAT Time Seen by Provider: 08/06/19 20:30 History Source: Patient Exam Limitations: No Limitations - History of Present Illness Initial Comments: 08/06/19 23:00 29-year-old female Korean-speaking denies past medical history complains of dry cough for 8 days, with sore throat. Inability to tolerate p.o. since yesterday with 2 episodes of vomiting and frontal headache today. Denies neck pain, fever, chills, chest pain, shortness of breath, abdominal pain, urinary symptoms. Denies recent travel or sick contacts. ROS: GENERAL/CONSTITUTIONAL: No fever, chills, weakness, dizziness HEAD, EYES, EARS, NOSE AND THROAT: Sore throat , no changes in vision, No ear pain or discharge CARDIOVASCULAR: No chest pain RESPIRATORY: Cough, no shortness of breath GASTROINTESTINAL: No pain, nausea, vomiting, diarrhea or constipation GENITOURINARY: No dysuria MUSCULOSKELETAL: No neck or back pain SKIN: No rash NEUROLOGIC: No headache, vertigo, loss of consciousness, or loss of sensation PE: GENERAL: well-appearing, NAD HEAD: NCAT EYES: Pupils equal, round and reactive to light, sclera anicteric, conjunctiva clear ENT: pharynx: Mild erythema, no exudate, uvula midline NECK: supple CHEST: nontender RESP: clear, no w/r/r CARDIO: rrr, no m/g/r ABD: +BS, soft, nontender, non distended BACK: no midline spinal ttp, no CVAT EXTREMITIES: Normal range of motion, no edema NEUROLOGICAL: Normal speech, normal gait SKIN: Warm, Dry Past History - Past Medical History Allergies/Adverse Reactions: Allergies Allergy/AdvReac Type Severity Reaction Status Date / Time No Known Allergies Allergy Verified 03/11/18 21:04 Home Medications: Ambulatory Orders Amoxicillin/Potassium Clav [Augmentin 875-125 Tablet] 1 each PO BID #20 tablet 08/20/17 Ibuprofen [Motrin -] 600 mg PO Q6H PRN tablet 08/20/17 Ibuprofen [Motrin -] 600 mg PO Q6H PRN tablet 08/20/17 Azithromycin 250 mg PO DAILY #6 tablet 08/06/19 Codeine Sulfate 30 mg PO Q6H 4 Days #10 tablet MDD 4 08/06/19 Asthma: No Cancer: No Cardiac Disorders: No COPD: No DVT: No Diabetes: No HTN: No Seizures: No Thyroid Disease: No (Pt denies) - Immunization History Immunization Up to Date: Yes - Psycho Social/Smoking Cessation Hx Smoking History: Never smoked Have you smoked in the past 12 months: No Hx Alcohol Use: No Drug/Substance Use Hx: No Substance Use Type: None Hx Substance Use Treatment: No *Physical Exam - Vital Signs Last Vital Signs Temp Pulse Resp BP Pulse Ox 98.4 F 69 19 105/59 L 99 08/06/19 19:37 08/06/19 19:37 08/06/19 19:37 08/06/19 19:37 08/06/19 19:37 Medical Decision Making - Medical Decision Making 08/06/19 23:02 29-year-old female with dry cough for 8 days, sore throat, headache, vomiting and intermittent nausea. Lungs clear to auscultation Urine negative Chest x-ray no acute infiltrate on my reading However we will treat cough with codeine Will prescribe a Zithromax x5 days [place] better after IV fluids, Zofran ODT and nebs Advised to follow-up with PMD Discussed return precautions Discharge - Discharge Information Problems reviewed: Yes Clinical Impression/Diagnosis: Viral upper respiratory illness Condition: Stable Disposition: HOME - Admission No - Follow up/Referral - Patient Discharge Instructions Additional Instructions: Take azithromycin 500 mg on day 1 then 150 mg x 4 days Take codeine 30 mg 1 every 6 hours as needed for cough Remain hydrated Return to ED if chest pain, shortness of breath, fever, chills or any worsening symptoms Follow-up with your doctor within 1 week - Post Discharge Activity
[2019-08-06] MEDS ORDERED: ALBUTEROL SO4 2.5/IPRATROPIUM 0.5 INH SOL 3 ML VIAL.NEB. NEB ONE (22:05)
[2019-08-06] MEDS ORDERED: KETOROLAC TROMETHAMINE 30 MG/1 ML VIAL ONE (22:25)
[2019-08-06] MEDS ORDERED: KETOROLAC TROMETHAMINE 30 MG/1 ML VIAL IVPUSH ONE (22:26)
[2019-08-06] MEDS ORDERED: SODIUM CHLORIDE 0.9% 500 ML INFUS.BAG IV ONE (22:27)
[2019-08-06] MEDS ORDERED: ONDANSETRON *ODT* 4 MG TABLET ONE (22:39)
[2019-08-06] MEDS ORDERED: ONDANSETRON *ODT* 4 MG TABLET SL ONE (22:39)
== END 2019-08-06 23:06 | disposition home or self-care (01) ==
LOC: JERFT 19:29
PROC: 3E0F7GC Introduction of Other Therapeutic Substance into Respiratory Tract, Via Natural or Artificial Opening (ICD-10-PCS; principal; 2019-08-06)
DX: J06.9 Acute upper respiratory infection, unspecified (principal)
CPT/HCPCS: 71046-TC-FY; 84703; 87070; 87804; 87880; 99282-25; Q0162

== ENCOUNTER 2019-09-08 20:06 | Emergency (ER) | payer OTHER ==
[2019-09-08 20:31] VITALS: BP 116/64; PULSE 71; TEMP 97.7; BMI 24.7
--- NOTE | 2019-09-08 21:51 | PDOC ---
Attending Attestation - Resident Resident Name: RomeroKarlene - ED Attending Attestation I have performed the following: I have examined & evaluated the patient, The case was reviewed & discussed with the resident, I agree w/resident's findings & plan - HPI HPI: 09/08/19 23:03 see resident hpi - Physicial Exam PE: 09/08/19 23:04 agree with resident exam - Medical Decision Making 09/08/19 23:04 29-year-old female with lower abdominal pain radiating to the back Plan for labs, urinalysis and pelvic ultrasound to rule out ovarian torsion IV fluids and analgesics currently being administered We will reevaluate pending results with hopeful discharge home
[2019-09-08] MEDS ORDERED: METOCLOPRAMIDE HCL INJECTION 10 MG/2 ML VIAL IVPB ONE (21:58)
[2019-09-08] MEDS ORDERED: SODIUM CHLORIDE 0.9% 500 ML INFUS.BAG IV ONE (21:58)
[2019-09-08] MEDS ORDERED: ACETAMINOPHEN 1000 MG/100 ML VIAL (NON FORMULARY) IVPB ONE (21:58)
[2019-09-08] MEDS ORDERED: METOCLOPRAMIDE HCL INJECTION 10 MG/2 ML VIAL ONE (22:16)
[2019-09-08] MEDS ORDERED: ACETAMINOPHEN INJECTION 100 ML IVPB ONE (22:17)
[2019-09-08 22:48] LABS: BASO % 0.7 % (0-2.0); EOS % 2.4 % (0-4.5); HEMOGLOBIN 12.3 GM/dL (10.7-15.3); LYMPH % 33.1 % (8-40); MCH 30.2 pg (25.7-33.7); MCHC 33.1 g/dl (32.0-36.0); MEAN PLT VOLUME 10.6 fl (7.5-11.1); MONO % 7.2 % (3.8-10.2); NEUT % 56.6 % (42.8-82.8); PLATELET COUNT 250 K/MM3 (134-434); RBC 4.07 M/mm3 (3.60-5.2); RDW 13.4 % (11.6-15.6); WHITE BLOOD COUNT 8.8 K/mm3 (4.0-10.0)
--- NOTE | 2019-09-08 23:12 | PDOC ---
History of Present Illness - General Chief Complaint: Pain Stated Complaint: ABD PAIN Time Seen by Provider: 09/08/19 21:47 History Source: Patient Exam Limitations: No Limitations - History of Present Illness Initial Comments: 09/08/19 23:09 [id number] who is with h/o Bray's palsy 5 years ago who p/w lower abdominal pain worsening for the past two weeks unlike pain she has ever had before. Notes that the pain is worse in the LLQ and radiates to her left low back. She has had intermittent nausea and mild headache but denies f/c, vomiting, d/c, black/bloody/white stool, dysuria, hematuria, vaginal bleeding or discharge, or any other symptoms. Has been taking Tylenol with the last dose yesterday. Nobody around her has been ill lately. No prior h/o kidney stones or gallbladder stones. No abdominal surgeries. Past History - Past Medical History Allergies/Adverse Reactions: Allergies Allergy/AdvReac Type Severity Reaction Status Date / Time No Known Allergies Allergy Verified 09/09/19 05:01 Home Medications: Ambulatory Orders Amoxicillin/Potassium Clav [Augmentin 875-125 Tablet] 1 each PO BID #20 tablet 08/20/17 Ibuprofen [Motrin -] 600 mg PO Q6H PRN tablet 08/20/17 Ibuprofen [Motrin -] 600 mg PO Q6H PRN tablet 08/20/17 Azithromycin 250 mg PO DAILY #6 tablet 08/06/19 Codeine Sulfate 30 mg PO Q6H 4 Days #10 tablet MDD 4 08/06/19 Guaifenesin AC [Robitussin AC] 10 ml PO Q6H #100 ml MDD 4 08/07/19 Asthma: No Cancer: No Cardiac Disorders: No COPD: No DVT: No Diabetes: No HTN: No Seizures: No Thyroid Disease: No (Pt denies) - Immunization History Immunization Up to Date: Yes - Psycho Social/Smoking Cessation Hx Smoking History: Never smoked Have you smoked in the past 12 months: No Hx Alcohol Use: No Drug/Substance Use Hx: No Substance Use Type: None Hx Substance Use Treatment: No Review of Systems - Review of Systems Able to Perform ROS?: Yes Comments:: 09/08/19 23:14 GEN: no fever, chills, malaise, or generalized weakness HEENT: no ear pain, congestion, sore throat, vision change, or eye pain CV: no chest pain, palpitations, lightheadedness, syncope, or edema RESP: no SOB, wheezing, or cough GI: abdominal pain, nausea, no vomiting, diarrhea, constipation, or rectal bleed : no dysuria, hematuria, or discharge MSK: left low back pain, no muscle weakness or pain, no joint swelling or pain NEURO: no headache, vertigo, numbness, tingling, or focal weakness PSYCH: no SI, HI, or behavior change SKIN: no jaundice, rash, lesions, or unexplained bruises ROS otherwise negative except as noted in HPI *Physical Exam - Vital Signs Last Vital Signs Temp Pulse Resp BP Pulse Ox 97.7 F 71 20 116/64 100 09/08/19 20:28 09/08/19 20:28 09/08/19 20:28 09/08/19 20:28 09/08/19 20:28 - Physical Exam 09/08/19 23:13 GENERAL: well-appearing, Thai-speaking, A/Ox4, no distress, answers questions appropriately HEENT: PERRLA, EOMI, moist mucous membranes, unilateral moderate low facial paralysis c/w prior Bray's palsy NECK/BACK: no midline ttp, no spinal stepoff or deformity, no hematoma, full ROM , neck supple CARDIOVASCULAR: regular rate/rhythm, no MGR, strong peripheral pulses, capillary refill <2 seconds, extremities wwp, no edema LUNGS/RESPIRATORY: no respiratory distress, CTAB GI/ABDOMEN: symmetric [id number], normoactive BS, soft, diffuse lower abdominal ttp worse in the LLQ, no midline pulsatile masses : no CVA tenderness EXTREMITIES: no muscle atrophy, no acute deformity SKIN: warm and dry, no pallor, no jaundice, no rash, no bruising, no skin breakdown, no cuts, no lesions NEUROLOGICAL: GCS 15, CN II-XII grossly intact, 5/5 strength proximally and distally, no facial droop ED Treatment Course - LABORATORY CBC & Chemistry Diagram: 09/08/19 22:30 09/08/19 22:30 - ADDITIONAL ORDERS Additional order review: Laboratory Results 09/08/19 22:30 Serum , Qual Negative 09/08/19 22:30 RBC 4.07 MCV 91.0 MCHC 33.1 RDW 13.4 MPV 10.6 Neutrophils % 56.6 D Lymphocytes % 33.1 D Monocytes % 7.2 Eosinophils % 2.4 D Basophils % 0.7 - RADIOLOGY Radiology Studies Ordered: Category Date Time Status TRANSVAGINAL ULTRASOUND US [US] Stat Ultrasound 09/08/19 21:58 Ordered - Medications Given in the ED: ED Medications Discontinued Medications Generic Name Dose Route Start Last Admin Trade Name Brian PRN Reason Stop Dose Admin Acetaminophen 1,000 mg 09/08/19 21:58 09/08/19 22:14 Ofirmev Injection - IVPB 09/08/19 21:59 1,000 mg ONCE ONE Administration Metoclopramide HCl 10 mg 09/08/19 21:58 09/08/19 22:15 Reglan Injection - IVPB 09/08/19 21:59 10 mg ONCE ONE Administration Sodium Chloride 1,000 ml 09/08/19 21:58 09/08/19 22:13 Normal Saline - IV 09/08/19 21:59 1,000 ml ONCE ONE Administration Medical Decision Making - Medical Decision Making 09/09/19 00:59 Adult female Pt p/w lower abdominal pain Initial Vital Signs Temp Pulse Resp BP Pulse Ox 97.7 F 71 20 116/64 100 09/08/19 20:28 09/08/19 20:28 09/08/19 20:28 09/08/19 20:28 09/08/19 20:28 Exam: As noted in Physical Exam section. DDX IBNLT: UTI/pyelonephritis, ovarian torsion, PID, TOA, ovarian cyst, malignancy, diverticulitis wwo abscess or perforation, colitis, less likely hernia, AAA/AD, pancreatitis, appendicitis, gastritis, PUD, ACS, renal colic, SBO, bowel ischemia, bowel perforation, cholecystitis, mesenteric adenitis, musculoskeletal, constipation, etc. W/U ordered: CBCD CMP UA UCx GC/Chlamydia/Trich ZUHAIR US TX ordered: IVF, Ofirmev, reglan Laboratory Tests 09/08/19 09/08/19 09/08/19 22:30 22:30 22:30 WBC 8.8 RBC 4.07 Hgb 12.3 Hct 37.0 MCV 91.0 MCH 30.2 MCHC 33.1 RDW 13.4 Plt Count 250 MPV 10.6 Absolute Neuts (auto) 5.0 Neutrophils % 56.6 D Lymphocytes % 33.1 D Monocytes % 7.2 Eosinophils % 2.4 D Basophils % 0.7 Nucleated RBC % 0 Sodium 139 Potassium 3.7 Chloride 105 Carbon Dioxide 27 Anion Gap 7 L BUN 15.5 Creatinine 0.5 L Est GFR (CKD-EPI)AfAm 151.59 Est GFR (CKD-EPI)NonAf 130.79 Random Glucose 93 Calcium 8.8 Magnesium 2.2 Total Bilirubin 0.4 AST 19 ALT 27 Alkaline Phosphatase 75 Total Protein 7.0 Albumin 3.6 Serum , Qual Negative Urine Color Urine Appearance Urine pH Ur Specific [place] Urine Protein Urine Glucose (UA) Urine Ketones Urine Blood Urine Nitrite Urine Bilirubin Urine Urobilinogen Ur Leukocyte Esterase Urine WBC (Auto) Urine RBC (Auto) Urine Casts (Auto) U Epithel Cells (Auto) Urine Bacteria (Auto) 09/08/19 22:30 WBC RBC Hgb Hct MCV MCH MCHC RDW Plt Count MPV Absolute Neuts (auto) Neutrophils % Lymphocytes % Monocytes % Eosinophils % Basophils % Nucleated RBC % Sodium Potassium Chloride Carbon Dioxide Anion Gap BUN Creatinine Est GFR (CKD-EPI)AfAm Est GFR (CKD-EPI)NonAf Random Glucose Calcium Magnesium Total Bilirubin AST ALT Alkaline Phosphatase Total Protein Albumin Serum , Qual Urine Color Yellow Urine Appearance Clear Urine pH 7.0 Ur Specific [place] 1.022 Urine Protein Negative Urine Glucose (UA) Negative Urine Ketones Negative Urine Blood Negative Urine Nitrite Negative Urine Bilirubin Negative Urine Urobilinogen 1.0 Ur Leukocyte Esterase 1+ H Urine WBC (Auto) 7 Urine RBC (Auto) 1 Urine Casts (Auto) 2 U Epithel Cells (Auto) 5.7 Urine Bacteria (Auto) 109.6 Pelvic exam with diffuse ttp including both adnexae and cervix, normal appearing physiologic discharge, os closed, no blood, no lesions. EXAM: TRANSVAGINAL ULTRASOUND AND DUPLEX SCAN PELVIS, COMPLETE No ovarian torsion bilaterally. Color flow with appropriate arterial and/or venous waveforms. 1.7 cm dominant follicle left ovary. No free fluid. Normal uterus. Endometrial stripe complex 10 mm thick EXAM: CT ABDOMEN AND PELVIS WITH CONTRAST Partly calcified 5.8 cm left adrenal cyst or adenoma. No bowel obstruction or inflammation. No free air. Normal appendix. Unremarkable liver, spleen, stomach, pancreas, kidneys and gallbladder. 5 mm nodule LLL, probably inflammatory. Bicornuate uterus. 2.1 cm dominant follicle left ovary. 1.7 cm dominant follicle right ovary. Trace physiologic free fluid right adnexa. 09/09/19 04:44 This patient has gotten significant relief of symptoms while in the ED. On last reassessment, vitals are wnl, pain is reasonably controlled, and exam is benign. Workup is not concerning for emergency-level pathology at this time. This patient is appropriate for discharge with close outpatient follow up. She comfortable with this plan and will follow up with her primary care provider in 1-3 days. 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 Specific return precautions are discussed and they will come back to the ER if necessary. Discharge - Discharge Information Problems reviewed: Yes Clinical Impression/Diagnosis: Nausea, Cervicitis, Adrenal cyst Abdominal pain Qualifiers: Abdominal location: unspecified location Qualified Code(s): R10.9 - Unspecified abdominal pain Condition: Stable Disposition: HOME - Admission No - Follow up/Referral Referrals: Mark Clinton MD [Staff Physician] - - Patient Discharge Instructions Additional Instructions: You were seen in the ER for abdominal pain. We did an exam, imaging studies, and labs. We gave you antibiotics in the ER for cervicitis, which is an infection of the cervix. After our assessment, we do not believe you are having a medical emergency at this time, and we believe you are safe to go home. Please follow up with your primary care provider tomorrow. Call their clinic, tell them you were seen in the ER, and tell them you need a follow-up. 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 If you have any new or worsening symptoms, please come back to the ER at any time (24 hours a day). Especially come back to the ER if you have worsening pain, fever, inability to have a bowel movement, vomiting, or other concerning symptoms. If you are having severe or life threatening symptoms, or symptoms that make it unsafe to drive or have someone drive you, please call 911. Here are the radiologist's reading of your ultrasound and CT scan. Please review these with your regular doctor. EXAM: TRANSVAGINAL ULTRASOUND AND DUPLEX SCAN PELVIS, COMPLETE No ovarian torsion bilaterally. Color flow with appropriate arterial and/or venous waveforms. 1.7 cm dominant follicle left ovary. No free fluid. Normal uterus. Endometrial stripe complex 10 mm thick EXAM: CT ABDOMEN AND PELVIS WITH CONTRAST Partly calcified 5.8 cm left adrenal cyst or adenoma. No bowel obstruction or inflammation. No free air. Normal appendix. Unremarkable liver, spleen, stomach, pancreas, kidneys and gallbladder. 5 mm nodule LLL, probably inflammatory. Bicornuate uterus. 2.1 cm dominant follicle left ovary. 1.7 cm dominant follicle right ovary. Trace physiologic free fluid right adnexa. - Post Discharge Activity Work/Back to School Note: Back to Work, Parent(s) Back to Work Note
[2019-09-08 23:22] LABS: EPI CELLS 5.7 /HPF (0-5/HPF); HYALINE CASTS 2 /lpf (0-8); URINE APPEARANCE CLEAR; URINE BACTERIA 109.6 /hpf (NEGATIVE); URINE BILIRUBIN NEGATIVE (NEGATIVE); URINE COLOR YELLOW; URINE GLUCOSE (UA) NEGATIVE (NEGATIVE); URINE KETONE NEGATIVE (NEGATIVE); URINE LEUK ESTERASE 1+ (NEGATIVE); URINE NITRITE NEGATIVE (NEGATIVE); URINE PROTEIN NEGATIVE (NEGATIVE); URINE RBC 1 /hpf (0-4); URINE WBC 7 /hpf (0-5)
[2019-09-08 23:24] LABS: ALBUMIN 3.6 g/dl (3.4-5.0); BILIRUBIN,TOTAL 0.4 mg/dL (0.2-1); BLOOD UREA NITROGEN 15.5 mg/dL (7-18); CALCIUM 8.8 mg/dL (8.5-10.1); CREATININE 0.5 mg/dL (0.55-1.3); MAGNESIUM 2.2 mg/dL (1.8-2.4); POTASSIUM 3.7 mmol/L (3.5-5.1)
[2019-09-09] MEDS ORDERED: cefTRIAXone SODIUM 1 GM VIAL ONE (04:49)
[2019-09-09] MEDS ORDERED: AZITHROMYCIN 250 MG TABLET ONE (04:49)
[2019-09-09] MEDS ORDERED: AZITHROMYCIN 500 MG TABLET PO ONE (04:50)
[2019-09-09] MEDS ORDERED: LIDOCAINE HCL 1%, 10 MG/ML (20ML VIAL) ONE (04:50)
== END 2019-09-09 05:01 | disposition home or self-care (01) ==
LOC: JER 20:06
PROC: 3E033NZ Introduction of Analgesics, Hypnotics, Sedatives into Peripheral Vein, Percutaneous Approach (ICD-10-PCS; principal; 2019-09-08)
PROC: 3E02329 Introduction of Other Anti-infective into Muscle, Percutaneous Approach (ICD-10-PCS; 2019-09-08)
PROC: 3E033GC Introduction of Other Therapeutic Substance into Peripheral Vein, Percutaneous Approach (ICD-10-PCS; 2019-09-08)
DX: R10.9 Unspecified abdominal pain (principal); E27.8 Other specified disorders of adrenal gland; N72 Inflammatory disease of cervix uteri; R11.0 Nausea
CPT/HCPCS: 36415; 74177-TC; 76830-TC; 80053; 81003; 83735; 84703; 85025; 87086; 87491; 87591; 96372; 96374; 96375; 99283-25; J0131; Q9967

== ENCOUNTER 2022-02-04 22:52 | Emergency (ER) | payer OTHER ==
[2022-02-04 23:11] VITALS: BP 122/68; PULSE 70; TEMP 97.7; BMI 28.7
[2022-02-05 03:24] LABS: BASO % 0.8 % (0-2.0); EOS % 1.2 % (0-4.5); HEMATOCRIT 38.2 % (32.4-45.2); HEMOGLOBIN 13.1 GM/dL (10.7-15.3); LYMPH % 31.1 % (8-40); MCH 30.3 pg (25.7-33.7); MCHC 34.2 g/dl (32.0-36.0); MEAN CELL VOLUME 88.6 fl (80-96); MEAN PLT VOLUME 9.6 fl (7.5-11.1); MONO % 6.1 % (3.8-10.2); NEUT % 60.8 % (42.8-82.8); PLATELET COUNT 254 10^3/uL (134-434); RBC 4.31 M/mm3 (3.60-5.2); RDW 13.5 % (11.6-15.6); WHITE BLOOD COUNT 11.1 K/mm3 (4.0-10.0)
[2022-02-05 03:26] LABS: URINE APPEARANCE CLEAR; URINE BILIRUBIN NEGATIVE (NEGATIVE); URINE COLOR YELLOW; URINE GLUCOSE (UA) NEGATIVE (NEGATIVE); URINE KETONE TRACE (NEGATIVE); URINE LEUK ESTERASE NEGATIVE (NEGATIVE); URINE NITRITE NEGATIVE (NEGATIVE); URINE PROTEIN NEGATIVE (NEGATIVE); URINE UROBILINOGEN 0.2 mg/dL (0.2-1.0)
[2022-02-05 03:46] LABS: ALBUMIN 4.2 g/dl (3.4-5.0); BLOOD UREA NITROGEN 15.2 mg/dL (7-18); CALCIUM 9.4 mg/dL (8.5-10.1)
[2022-02-05 03:49] LABS: CREATININE 0.6 mg/dL (0.55-1.3)
[2022-02-05 03:51] LABS: BILIRUBIN,TOTAL 0.4 mg/dL (0.2-1); TOT PROT 7.9 g/dl (6.4-8.2)
[2022-02-05] MEDS ORDERED: IBUPROFEN 600 MG TABLET (FP) PO ONE ×2 (05:39→05:41)
== END 2022-02-05 06:39 | disposition home or self-care (01) ==
LOC: JER 22:52
DX: R10.13 Epigastric pain (principal); D35.02 Benign neoplasm of left adrenal gland
CPT/HCPCS: 36415; 74176-TC; 80053; 81003; 83690; 84703; 85025; 99284-25

== ENCOUNTER 2022-08-02 12:34 | Emergency (ER) | payer OTHER ==
[2022-08-02 15:10] VITALS: BP 125/71; PULSE 81; RESP 18; TEMP 98.3; BMI 28.3
== END 2022-08-02 15:44 | disposition home or self-care (01) ==
LOC: JER 12:34
DX: J06.9 Acute upper respiratory infection, unspecified (principal)
CPT/HCPCS: 0241U-QW; 99283-25